=== PATIENT | female | born 1970 | race Caucasian/White ===

== ENCOUNTER 2019-10-31 14:26 | Outpatient (CLI) | payer MEDICAID, SELFPAY ==
--- NOTE | 2019-10-31 14:48 | XR_ITS ---
WS: [id number] XR chest 2V* [id number] REASON FOR EXAM: PLEURAL EFFUSION FINDINGS: The heart and mediastinal interfaces normal. The peripheral lungs do not show pleural effusion. The lung soto are well well aerated. There is no active infiltrates, no pulmonary edema. XR/XR chest 2V* [id number] IMPRESSION: Negative chest for active pathology.
== END 2019-10-31 14:27 | disposition home or self-care (01) ==
LOC: RADWPI 14:30
PROVIDERS: PCP Nurse Practitioner Family; Visit Provider Nurse Practitioner Family
DX: J98.8 Other specified respiratory disorders (principal); J90 Pleural effusion, not elsewhere classified
CPT/HCPCS: 71046

== ENCOUNTER 2020-02-01 08:34 | Outpatient (CLI) | payer MEDICAID, SELFPAY ==
--- NOTE | 2020-02-01 08:40 | US_ITS ---
WS: [id number] THYROID ULTRASOUND REASON FOR EXAM: ABNORMAL TSH/ENLARGED THYROID TECHNIQUE: Grayscale and Doppler ultrasound examination of the thyroid gland. FINDINGS: RIGHT: Right thyroid gland measures 5.6 cm x 2.3 cm x 2.1 cm. Right thyroid volume equals 14.0 ccm3. Scatter ed prominent cyst are seen throughout the lower one half of the right lobe of the thyroid. The gland is enlarged on the right. LEFT: Left thyroid gland measures 4.6 cm x 2.2 cm x 2.0 cm. Left thyroid volume equals 10.8 ccm3. The left lobe shows no numerous large cystic changes all appear to be benign cyst throughout the gland. Thyroid isthmus: 0.5 mm. US/US thyroid [id number] IMPRESSION: Enlarged right left lobes of the thyroid with numerous large cyst in both lobes .
== END 2020-02-01 08:35 | disposition home or self-care (01) ==
LOC: RAD 08:37
PROVIDERS: PCP Nurse Practitioner Family; Visit Provider Nurse Practitioner Family
DX: R79.89 Other specified abnormal findings of blood chemistry (principal); E04.9 Nontoxic goiter, unspecified
CPT/HCPCS: 76536

== ENCOUNTER 2020-04-05 12:39 | Day surgery (SDC) | payer MEDICAID, SELFPAY ==
[2020-04-05 12:50] VITALS: BP 126/81; PULSE 90; RESP 18; TEMP 36.9; O2SAT 97
--- NOTE | 2020-04-05 13:04 | ANES.PREANE2 ---
Pre-Anesthetic Assessment Pre-Anesthetic Assessment: Height/Weight: Height 1.65 m Weight 76.204 kg Temp Pulse Resp BP Pulse Ox 98.5 F 90 18 126/81 97 04/05/20 12:50 04/05/20 12:50 04/05/20 12:50 04/05/20 12:50 04/05/20 12:50 Preop Diagnosis: Right de Quervain's tenosynovitis Proposed Procedure: Operation Date: 04/05/20 14:05 Proposed Procedures p Dequervain Release [id number] M65.4(Right) - Aubrey Hardy MD Familial anesthetic complications: Previous nerve block or mariia block required supplemental local Was Beta Andreia taken within 24 hours: N/A Last intake: Intake Last Liquid Date 04/05/20 Last Liquid Time 08:30 Last Solid Date 04/04/20 Last Solid Time 22:00 Social: Social History: Tobacco and No alcohol Exam: Pre-Anes Outpt Exam: alert, oriented x 3, clear to auscultation bilaterally and regular rate & rhythm Airway: Cervical ROM: WNL MP: 3 Dentition: Partials Metabolic: Metabolic: DM and Hyperlipidemia Anesthetic Plan: ASA status: 1 Anesthesia: MAC and Regional (specify below) Other: mariia block Risk of > 500 ml blood loss (7ml/kg in children): No PFSH Anesthesia PFSH: Medical History DM II (diabetes mellitus, type II), controlled MRSA (methicillin resistant staph aureus) culture positive Palpitations Smoker Surgical History Hx of abdominal surgery Family History Father Diabetes Family history of premature coronary artery disease Mother Family history of premature coronary artery disease Denies family history of Anesthesia complication Bleeding disorder Social History Smoking and tobacco status: current some day smoker Alcohol intake: never Data Anesthesia Cardiac Studies: Holter Monitor 10/23/19
[2020-04-05 13:18] LABS: Glucose Point of Care 166 mg/dL (70-110)
[2020-04-05] MEDS: sodium chloride 0.9% 1,000 ML 30 ML IV (13:20)
--- NOTE | 2020-04-05 14:41 | W.PM.OPSUD ---
Surgery/Procedure H&P Update DATE OF PROCEDURE: April 05, 2020 DATE H&P PERFORMED: 03/22/20 PREOP DIAGNOSIS: Right de Quervain's tenosynovitis PLANNED PROCEDURE: Operation Date: 04/05/20 14:05 Proposed Procedures p Devorah Release [id number] M65.4(Right) - Aubrey Hardy MD
[2020-04-05 15:30] VITALS: BP 112/71; PULSE 77; RESP 18; TEMP 36.9
--- NOTE | 2020-04-05 15:38 | P.OP_ITS ---
Operative Report Date of procedure: April 05, 2020 Pre-op Diagnosis: Right de Quervain's tenosynovitis Post-op diagnosis: same Post-op Findings: Same Procedure Done: Right de Quervain's release Pathology: none sent Surgeon: Aubrey Hardy Anesthesia: Local (Jose Alfredo block) Estimated blood loss (mL): 2 Tourniquet time (min): 31 Findings: Patient had no masses or space-occupying lesions in the first extensor compartment of the wrist. Her tendons appeared healthy. Condition: stable Disposition: same day Procedure: The patient was taken to the operating room and a Jose Alfredo block was provided by anesthesia. She was prepped and draped in the usual fashion a timeout was performed. Her skin was tested to ensure adequacy of the block. A centimeter and half in the transverse incision was made radially over the tip of the ulnar styloid. Dissection was carried down bluntly through the deep tissues revealing the first extensor compartment of the wrist. The tensor pollicis brevis and abductor tendons were identified distally in this sheath divided. Dissection was then accomplished the central and the sheath proximally with sci ssors over a distance of approximately 8 mm. Large branches of the thumb abductor could be removed out of the wound revealing a much smaller thumb extensor tendon. No additional compartments were identified. Each tendon was released of constricting tendon sheath. No additional compartments were identified. The wound was irrigated with saline. The skin is well infiltrated with 1/2% Marcaine solution. A bulky compressive dressing was applied about the thumb using 4 x 4 fluffs, cast padding, and a 2 inch Gunnar wrap. The patient was taken to recovery room in stable condition. Tourniquet was deflated at 31- minute
[2020-04-05 15:51] VITALS: BP 132/79; PULSE 72; RESP 18; TEMP 36.9; O2SAT 97
--- NOTE | 2020-04-05 16:53 | ANE.PACU2 ---
Inpatient post-anesthesia follow up: Airway intact: Yes Vital signs: Temperature 98.5 F Pulse Rate 72 Respiratory Rate 18 Blood Pressure 132/79 Pulse Oximetry 97 Oxygen Delivery Me thod Room Air Oxygen Flow Rate Fraction of Inspir ed Oxygen Hydration adequate: Yes Nausea and vomiting: No Pain level: 1 Mental status: Baseline
== END 2020-04-05 16:26 | disposition home or self-care (01) ==
LOC: OR 16:36
PROVIDERS: PCP Nurse Practitioner Family; Visit Provider Orthopaedic Surgery
PROC: (CPT 25000; principal; 2020-04-05 14:05)
DX: M65.4 Radial styloid tenosynovitis [de Quervain] (principal); E11.9 Type 2 diabetes mellitus without complications; E78.5 Hyperlipidemia, unspecified; F17.210 Nicotine dependence, cigarettes, uncomplicated
CPT/HCPCS: 25000; 12345; 36416; 82962; 96360; 96361; J3490; J7030

== ENCOUNTER → 2020-05-02 15:40 | Outpatient (BNVA) | payer MEDICAID, SELFPAY | PROVIDERS: PCP Nurse Practitioner Family; Visit Provider Orthopaedic Surgery | DX: R00.2 Palpitations (principal); M25.531 Pain in right wrist | CPT/HCPCS: 73110 ==

== ENCOUNTER 2020-08-28 15:46 | Outpatient (CLI) | payer MEDICAID, SELFPAY ==
[2020-08-28 16:38] LABS: Basophils # 0.1 10^3/uL (0.0-0.1); Basophils % 0.6 %; Eosinophils # 0.1 10^3/uL (0.0-0.8); Eosinophils % 0.6 %; Hematocrit 43.9 % (37.0-47.0); Hemoglobin 14.6 g/dL (11.5-15.3); Lymphocytes # 3.5 10^3/uL (0.8-4.8); Lymphocytes % 35.2 %; Mean Corpuscular HGB Conc 33.3 g/dL (30.0-36.0); Mean Corpuscular Hemoglobin 31.3 pg (28.0-34.0); Mean Platelet Volume 9.3 fL (7.4-10.4); Monocytes # 0.3 10^3/uL (0.2-0.9); Monocytes % 2.8 %; Neutrophils # 6.03 10^3/uL (1.8-7.7); Neutrophils % 60.6 %; Nucleated Red Blood Cells % 0 %; Platelet Count 271 10^3/cmm (130-400); Red Blood Count 4.67 10^6/uL (4.1-5.3); Red Cell Distribution Width 11.7 % (12.1-15.1)
[2020-08-28 19:27] LABS: Alanine Aminotransferase 14 U/L (0-33); Alkaline Phosphatase 109 IU/L (35-105); Amylase 41 U/L (28-100); Anion Gap 15.3 (5-19); Aspartate Amino Transferase 14 U/L (0-32); Blood Urea Nitrogen 6 mg/dL (6-20); Calcium 9.4 mg/dL (8.5-10.5); Carbon Dioxide 25 mmol/L (22-29); Chloride 103 mmol/L (98-107); Globulin 2.2 g/dL (1.3-4.6); Glomerular Filtration Rate 106.7 mL/min (90-130); Glucose 212 mg/dL (65-115); Lipase 22 U/L (13-60); Osmolality Calculated 292 mOsm/kg (285-295); Potassium 4.3 mmol/L (3.5-5.1); Sodium 139 mmol/L (136-145); Total Bilirubin 0.2 mg/dL (0.15-1.2); Total Protein 6.2 g/dL (6.6-8.7)
== END 2020-08-28 15:47 | disposition home or self-care (01) ==
PROVIDERS: PCP Nurse Practitioner Family; Visit Provider Nurse Practitioner Family
DX: R10.10 Upper abdominal pain, unspecified (principal)
CPT/HCPCS: 80053; 82150; 83690; 84484; 85025

== ENCOUNTER 2020-09-04 06:48 | Outpatient (CLI) | payer MEDICAID, SELFPAY ==
--- NOTE | 2020-09-04 07:04 | US_ITS ---
WS: [id number] Complete ABDOMINAL ULTRASOUND HISTORY: ABD PAIN COMPARISON: 07/06/2019 gallbladder ultrasound Liver: 19.6 cm in length. Moderately enlarged liver with coarsened echotexture throughout the liver. Ill-defined hypoechoic area in the central RIGHT lobe the liver measures 1.8 x 2.0 x 1.6 cm. There ar e scattered areas of low attenuation from hepatic steatosis. No bile duct dilatation. Gallbladder: Mildly thickened gallbladder wall. More focal soft tissue thickening towards the fundus of the gallbladder measuring up to 1.2 cm. No stones or pericholecystic fluid. Gallbladder wall thickness: 0.4 cm. Pancreas: Normal size and echogenicity. CBD: 0.9 cm. Right kidney: 11.7 cm x 5.6 cm x 4.1 cm. No mass, cortical thickening or hydronephrosis. Left kidney: 12.6 cm x 6.5 cm x 4.8 cm. No mass, cortical thickening or hydronephrosis. Spleen: Normal size and echogenicity. Abdominal aorta and IVC are within normal limits. No ascites. US/US abdomen complete* [id number] IMPRESSION: 1. No evidence for cholelithiasis. 2. Mild gallbladder wall thickening. 3. Focal soft tissue thickening measuring 1.2 cm near the fundus of the gallbl adder. This may be a polyp or tumefactive sludge. Early neoplasm not excluded. 4. Enlarged liver with coarsened echotexture. Hypoechoic mass in the central l iver with a maximum diameter of 2.0 cm. This may be an early neoplasm or focal hepatic steatosis may appear similar. 5. Recommendation: Follow-up CT abdomen and pelvis with IV and oral contrast t o further evaluate the liver and the gallbladder.
== END 2020-09-04 06:49 | disposition home or self-care (01) ==
LOC: US 06:49
PROVIDERS: PCP Nurse Practitioner Family; Visit Provider Nurse Practitioner Family
DX: R10.11 Right upper quadrant pain (principal); R16.0 Hepatomegaly, not elsewhere classified
CPT/HCPCS: 76700

== ENCOUNTER 2020-09-21 12:34 | Outpatient (CLI) | payer MEDICAID, SELFPAY ==
--- NOTE | 2020-09-21 13:01 | CT_ITS ---
WS: [id number] CT ABDOMEN PELVIS TECHNIQUE: Contrast-enhanced CT of the abdomen and pelvis with coronal and sagittal reformatted image s. CLINICAL INFORMATION: LIVER MASS COMPARISON: CT and ultrasound July 05, 2021. CT DLP: 1095.[address] scans at [facility] use at least one of these dose optimization techniques: automat ed exposure control; mA and/or kV adjustment per patient size (includes targeted exams where dose is matched to clinical indication); or iterative reconstruction. FINDINGS: Diffuse fatty infiltration the liver. No hepatic lesions to correspond to the ultrasound findings. Ti ny hepatic cyst or cavernous hemangioma at the dome the liver measuring 3 mm. Normal portal vein and splenic vein. Tiny amount of soft tissue thickening in the gallbladder neck may represent a tiny poly p as seen on the recent ultrasound. No fluid in the gallbladder fossa. No intrahepatic biliary ductal dilatation. Slightly prominent common bile duct measuring 7 to 8 mm. Normal tapering at the pancreat ic head. Prior ventral hernia repair with ectatic ventral abdominal wall. Lung bases are well aerated. Calcifi ed granulomas right middle lobe and right lower lobe. Normal spleen. Stable left adrenal adenoma measuring 2.3 CM. Normal renal parenchymal enhancement. No hydronephrosis. Normal caliber abdominal aorta. Aortic calcification. Prior postoperative changes sigmoid anastomosis. No evidence of high-grade small or large bowel obstr uction. No free fluid in the abdomen or pelvis. No lymphadenopathy in the abdomen or pelvis. Normal lumbar spine. Mild disc bulging L4-L5 and L5-S1. CT/CT abdomen pelvis w con* [id number] IMPRESSION: 1. Diffuse fatty infiltration the liver. No hepatic lesions to correspond to t he ultrasound findings. 2. Tiny amount of soft tissue thickening at the gallbladder neck may represent the suspected polyp seen on the ultrasound. This is unchanged since CT 02/28. Gallbladder is otherwise normal. 3. Mild prominence of the common bile duct measuring 7-8 mm which tapers rocky lly at the pancreatic head. This is unchanged since 2019. 4. Stable left adrenal adenoma. 5. Prior ventral abdominal wall hernia repair with ectatic abdominal wall. 6. Prior postoperative changes sigmoid colon. 7. No free fluid in the abdomen or pelvis.
[2020-09-21] MEDS: iohexol 300 mg/mL 100 mL Btl IV (14:07)
[2020-09-21] MEDS: iohexol 300 mg/mL 50 mL Btl IV (14:08)
== END 2020-09-21 12:35 | disposition home or self-care (01) ==
LOC: RADWPI 12:34
PROVIDERS: PCP Nurse Practitioner Family; Visit Provider Nurse Practitioner Family
DX: R16.0 Hepatomegaly, not elsewhere classified (principal); K76.0 Fatty (change of) liver, not elsewhere classified; D35.02 Benign neoplasm of left adrenal gland
CPT/HCPCS: 74177; Q9967

== ENCOUNTER → 2021-05-14 15:06 | Outpatient (BNVA) | payer MEDICAID, SELFPAY | PROVIDERS: PCP Nurse Practitioner Family; Visit Provider Nurse Practitioner Family | DX: Z20.822 Contact with and (suspected) exposure to COVID-19 (principal); J06.9 Acute upper respiratory infection, unspecified | CPT/HCPCS: 87635 ==

== ENCOUNTER → 2021-09-11 14:12 | Outpatient (BNVA) | payer MEDICAID, SELFPAY | PROVIDERS: PCP Nurse Practitioner Family; Visit Provider Nurse Practitioner Family | DX: Z20.822 Contact with and (suspected) exposure to COVID-19 (principal) | CPT/HCPCS: 87635 ==

== ENCOUNTER 2021-10-28 22:16 | Emergency (ER) | payer MEDICAID, SELFPAY ==
[2021-10-28 22:44] VITALS: BP 140/75; PULSE 112; RESP 18; TEMP 37.1; O2SAT 97; BMI 28.3
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
[2021-10-29 00:42] VITALS: RESP 16
[2021-10-29] MEDS: orphenadrine 30 mg/mL Inj 2 mL 60 MG IVP (00:42)
[2021-10-29] MEDS: ondansetron 2 mg/ML SDV 2 mL 4 MG IVP (00:42)
[2021-10-29] MEDS: sodium chloride 0.9% 500 ML 999 ML IV (00:42)
[2021-10-29] MEDS: morphine 4 mg/mL SDV 1 mL IVP ×2 (00:42→02:25)
[2021-10-29] MEDS: iohexol 300 mg/mL 100 mL Btl IV (01:10)
[2021-10-29 02:25] VITALS: RESP 16
[2021-10-29] MEDS: ketorolac 30 mg/mL INJ IVP (03:04)
[2021-10-29 03:05] VITALS: BP 134/78; PULSE 78; RESP 16; O2SAT 98
== END 2021-10-29 03:07 | disposition home or self-care (01) ==
PROVIDERS: Emergency Provider Physician Assistant; PCP Nurse Practitioner Family
DX: M54.50 Low back pain, unspecified (principal); S13.4XXA Sprain of ligaments of cervical spine, initial encounter; V89.2XXA Person injured in unspecified motor-vehicle accident, traffic, initial encounter; Y92.410 Unspecified street and highway as the place of occurrence of the external cause; F17.200 Nicotine dependence, unspecified, uncomplicated
CPT/HCPCS: 70450; 71260; 72125; 72128; 72131; 74177; 96374; 96375; 96376; 99284; J1885; J2270; J2360; J2405; J7040; Q9967

== ENCOUNTER 2021-12-18 09:18 | Outpatient (CLI) | payer MEDICAID, SELFPAY ==
--- NOTE | 2021-12-18 09:28 | US_ITS ---
WS: [id number] THYROID ULTRASOUND HISTORY: ENLARGED THYROID GLAND COMPARISON: 02/01/2020 Right lobe: 2.9 cm x 2.7 cm x 5.1 cm (w x ap x l). Volume: 20.9 cm3. Thyroid gland is enlarged. There is a predominantly cystic mass with a few septations involving a lar ge portion of the thyroid. The largest probably cystic nodule measures 2.4 x 2.5 x 2.5 cm. No increas ed vascularity along the septations. No mural nodule is identified. Left lobe: 3.0 cm x 2.6 cm x 4.6 cm (w x ap x l). Volume: 18.5 cm3. Mildly enlarged gland. Predominantly cystic nodule involving a large portion of the gland. There is s olid component but predominantly cystic. This nodule measures 2.4 x 2.5 x 3.2 cm. The soft tissue com ponent within the periphery appears very similar to prior studies. Isthmus: 0.4 cm. US/US thyroid [id number] IMPRESSION: 1. Bilateral large predominantly cystic nodules within each gland. There are s olid components the findings are very similar to the prior study. Predominantly cystic nodules have a low suspicion for malignancy. 2. No adenopathy.
== END 2021-12-18 09:19 | disposition home or self-care (01) ==
LOC: RAD 09:20
PROVIDERS: PCP Nurse Practitioner Family; Visit Provider Nurse Practitioner Family
DX: E04.8 Other specified nontoxic goiter (principal)
CPT/HCPCS: 76536

== ENCOUNTER 2021-12-23 10:44 | Outpatient (CLI) | payer MEDICAID, SELFPAY ==
--- NOTE | 2021-12-23 11:05 | MR_ITS ---
WS: [id number] MRI HEAD WITH CONTRAST TECHNIQUE: Sagittal T1, T2 axial, T2 axial FLAIR, axial susceptibility weighted imaging, axial diffus ion weighted images, and coronal T2 images were obtained. Pre and post-T1 axial and post T1 coronal i mages. ADC and FSPGR images. CLINICAL INFORMATION: CEREBELLAR TONSILLER ECTOPIA COMPARISON: CT October 29, 2021 FINDINGS: No evidence of restricted diffusion to suggest acute ischemia. Ventricular system and basal cisterns are patent. Chiari I malformation with cerebellar tonsils approximately 15 mm below the foramen magnu m. Mild crowding of the foramen magnum. Mild mass effect on the brainstem. Normal brain stem signal. Normal 4th ventricle. No hydrocephalus. Mastoid air cells well aerated. Normal vascular flow voids at the skull base. Paranasal sinuses and m astoid air cells well aerated. No hemosiderin on susceptibly weighted images. Normal optic chiasm and pituitary infundibulum. Normal cavernous sinuses and Meckel's cave. No abnormal gadolinium enhanceme nt. Normal posterior nasopharynx. MR/MR head wo/w con [id number] IMPRESSION: 1. No evidence of restricted diffusion to suggest acute ischemia. 2. Chiari I malformation with cerebellar tonsils 15 mm below the foramen magnu m. Mild crowding at the foramen magnum with slight mass effect on the cervical medullary junction. No signal abnormality. 3. Normal 4th ventricle. No hydrocephalus. 4. No suspicious intracranial signal abnormalities. 5. No hemosiderin on susceptibly weighted images. 6. Cervical and thoracic spine MRI should be obtained to evaluate for cervical cord syrinx considering Chiari I malformation
[2021-12-23] MEDS: gadobenate dimeglumine 20 mL vial IV (12:39)
== END 2021-12-23 10:45 | disposition home or self-care (01) ==
LOC: RAD 10:45
PROVIDERS: PCP Nurse Practitioner Family; Visit Provider Nurse Practitioner Family
DX: Q04.8 Other specified congenital malformations of brain (principal); E04.8 Other specified nontoxic goiter
CPT/HCPCS: 70553

== ENCOUNTER → 2022-03-25 12:19 | Outpatient (BNVA) | payer MEDICAID, SELFPAY | PROVIDERS: Visit Provider Family Medicine | DX: G93.5 Compression of brain (principal); E11.9 Type 2 diabetes mellitus without complications; I10 Essential (primary) hypertension; Z76.89 Persons encountering health services in other specified circumstances | CPT/HCPCS: 80053; 80061; 83036; 84439; 84443; 85025 ==

== ENCOUNTER → 2023-03-23 14:22 | Outpatient (BNVA) | payer MEDICARE, MEDICAID, SELFPAY | PROVIDERS: PCP Family Medicine; Visit Provider Family Medicine | DX: I10 Essential (primary) hypertension (principal); E11.9 Type 2 diabetes mellitus without complications; F17.218 Nicotine dependence, cigarettes, with other nicotine-induced disorders; E78.5 Hyperlipidemia, unspecified; F41.9 Anxiety disorder, unspecified; F32.A Depression, unspecified; E83.52 Hypercalcemia | CPT/HCPCS: 80053; 80061; 82043; 82306; 83036; 84443; 85025 ==

== ENCOUNTER 2023-08-04 15:07 | Emergency (ER) | payer MEDICARE, MEDICAID, SELFPAY ==
--- NOTE | 2023-08-04 15:17 | ECG_ITS ---
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 Measurements Intervals [place] Rate: 97 P: 74 NM: 146 QRS: 73 QRSD: 102 T: 69 QT: 363 QTc: 461 Interpretive Statements SINUS RHYTHM MINIMAL ST DEPRESSION [0.025+ mV ST DEPRESSION] Compared to ECG 04/02/2019 18:27:18 ST (T wave) deviation now present Electronically Signed On 08-04-2023 22:23:21 BRUSH HOLDER INSPECTOR by Carla Atwood M.D. [id number]
[2023-08-04 15:19] VITALS: BMI 27.9
[2023-08-04 15:24] VITALS: BP 161/76; PULSE 108; RESP 20; TEMP 36.7; O2SAT 98
--- NOTE | 2023-08-04 15:25 | XRR_ITS ---
PROCEDURE INFORMATION: Exam: XR Chest Exam date and time: 08/04/2023 3:33 PM Age: 53 years old Clinical indication: Pain; Angina pectoris; Additional info: Cp TECHNIQUE: Imaging protocol: Radiologic exam of the chest. Views: 1 view. COMPARISON: CT chest andreal w/*[id number] 10/29/2021 1:02 AM FINDINGS: Lungs: Unremarkable. No consolidation. Pleural spaces: Unremarkable. No pleural effusion. No pneumothorax. Heart/Mediastinum: Unremarkable. No cardiomegaly. Bones/joints: Unremarkable. XR/XR chest 1V portable [id number] IMPRESSION: No acute findings.
--- NOTE | 2023-08-04 15:40 | W.ED.CHESTPA ---
HPI - Chest Pain General: Chief Complaint: Chest Pain Stated Complaint: heart beating funny Time Seen by Provider: 08/04/23 15:27 Source: patient Mode of arrival: ambulatory Limitations: no limitations History of Present Illness: 53-year-old female states that she has had a history of thyroid issues states that over the last 2 to 3 weeks she has been having palpitations feeling like her heart is racing and beating out of the place she had some shortness of breath chest pain with it. She is concerned she may be hyperthyroid. She states she had to grow since she is post to see ENT Dr. Menendez but has not yet. Denies any vomiting or diarrhea Associated symptoms: Reports dyspnea and palpitations; Deny abdominal pain, fever(s), nausea or vomiting Review of Systems Const: Denies: fever(s), chills, body aches or change in appetite ENMT: Denies: throat pain or dental pain Card: Reports: chest pain and palpitations Resp: Reports: dyspnea GI: Denies: abdominal pain, nausea, vomiting or diarrhea Musc: Denies: neck pain or back pain Skin/Breast: Denies: rash Neuro: Denies: headache(s) PFSH ED PFSH: Medical History (Updated 08/04/23 @ 19:41 by Kellee Goldstein MD) GERD (gastroesophageal reflux disease) Diverticulitis Hyperlipidemia Hypertension DM II (diabetes mellitus, type II), controlled Surgical History H/O esophagogastroduodenoscopy History of open sigmoidectomy History of History of hysterectomy 2004 Family History Father Diabetes Family history of premature coronary artery disease Mother Family history of premature coronary artery disease Denies family history of Anesthesia complication Bleeding disorder Social History Smoking and tobacco/nicotine status: never used tobacco/nicotine Alcohol intake: never Substance/Drug Use: never Female Reproductive History: Spontaneous abortions: No Physical Exam Const: COMMON NORMALS: no acute distress, patient oriented x3 and healthy appearing HENMT: COMMON NORMALS: normocephalic and atraumatic HEAD & SCALP: normocephalic and atraumatic Neck/C-Spine: COMMON NORMALS: full ROM and supple Chest: COMMONS NORMALS: normal inspection of the chest and normal palpation of entire chest wall Resp: COMMON NORMALS: normal respiratory effort, No retractions, No use of accessory muscles and clear to auscultation bilaterally AUSCULTATION: clear to auscultation bilaterally Cardio: COMMON NORMALS: regular rate, regular rhythm and No murmurs present (Cardio) RATE: regular rate RHYTHM: regular rhythm GI: COMMON NORMALS: Normal to inspection, nondistended, normoactive bowel sounds present, Soft to palpation, non-tender and no masses PALPATION: Yes Soft to palpation Extremity: COMMON NORMALS: normal to inspection and full ROM Neuro: COMMON NORMALS: patient oriented x3, moves all extremities and no focal motor deficits Psych: COMMON NORMALS: mental status grossly normal, Normal thought process present and cooperative THOUGHT PROCESS: Normal thought process present Skin: COMMON NORMALS: no rashes or lesions noted and no wounds GENERAL SKIN EXAM: no rashes or lesions noted Course Vital Signs: Vital signs: Vital Signs Temperature 98.1 F 08/04/23 15:24 Pulse Rate 87 08/04/23 17:34 Respiratory Rate 20 H 08/04/23 17:34 Blood Pressure 127/73 08/04/23 16:52 Pulse Oximetry 98 08/04/23 17:34 Oxygen Delivery Me thod Room Air 08/04/23 17:34 MDM - Chest Pain Medical Decision Making Patient presents here with chest pain and palpitations atypical in nature D-dimer troponins here are all negative she is stable for discharge she is to follow-up with PCP and return if worsening. Medical Records I reviewed the patient's medical records. Lab Data I reviewed the patient's lab results. 08/04/23 16:02 08/04/23 17:00 Laboratory Results WBC 12.11 10^3/uL (3.29-11.43) H 08/04/23 16:02 RBC 5.11 10^6/uL (3.85-5.65) 08/04/23 16:02 Hgb 16.80 g/dL (11.27-16.99) 08/04/23 16:02 Hct 48.6 % (36-47) H 08/04/23 16:02 MCV 95.1 fl (85-98) 08/04/23 16:02 MCH 32.9 pg (27-33) 08/04/23 16:02 MCHC 34.6 g/dL (30-55) 08/04/23 16:02 RDW 12.1 % (12.1-15.1) 08/04/23 16:02 Plt Count 230 10^3/cmm (157-399) 08/04/23 16:02 MPV 9.6 fL (7.4-10.4) 08/04/23 16:02 Neut % (Auto) 71.0 % 08/04/23 16:02 Lymph % (Auto) 24.2 % 08/04/23 16:02 [place] % (Auto) 3.7 % 08/04/23 16:02 Eos % (Auto) 0.3 % 08/04/23 16:02 Baso % (Auto) 0.4 % 08/04/23 16:02 Neut # (Auto) 8.59 10^3/uL (1.8-7.7) H 08/04/23 16:02 Lymph # (Auto) 2.9 10^3/uL (0.8-4.8) 08/04/23 16:02 [place] # (Auto) 0.5 10^3/uL (0.2-0.9) 08/04/23 16:02 Eos # (Auto) 0.0 10^3/uL (0.0-0.8) 08/04/23 16:02 Baso # (Auto) 0.1 10^3/uL (0.0-0.1) 08/04/23 16:02 Nucleated RBC % (auto) 0 % 08/04/23 16:02 Nucleated RBCs # 0.0 /100WBC 08/04/23 16:02 D-Dimer 0.28 ug/mLFEU (0-0.59) 08/04/23 17:00 Sodium 138 mmol/L (136-145) 08/04/23 17:00 Potassium 3.6 mmol/L (3.5-5.1) 08/04/23 17:00 Chloride 100 mmol/L (98-107) 08/04/23 17:00 Carbon Dioxide 25 mmol/L (22-29) 08/04/23 17:00 Anion Gap 16.6 (5-19) 08/04/23 17:00 BUN 8 mg/dL (6-20) 08/04/23 17:00 Creatinine 0.5 mg/dL (0.5-0.9) 08/04/23 17:00 GFR Calculation 130.1 mL/min (90-130) H 08/04/23 17:00 Glucose 261 mg/dL (65-115) H 08/04/23 17:00 Calculated Osmolality 293 mOsm/kg (285-295) 08/04/23 17:00 Calcium 9.9 mg/dL (8.5-10.5) 08/04/23 17:00 Total Bilirubin 0.4 mg/dL (0.15-1.2) 08/04/23 17:00 AST 17 U/L (0-32) 08/04/23 17:00 ALT 17 U/L (0-33) 08/04/23 17:00 Alkaline Phosphatase 130 U/L (35-105) H 08/04/23 17:00 Troponin T Baseline < 6 ng/L (0-10) 08/04/23 17:00 Troponin T 120 Minute 6.00 ng/L (0-10) 08/04/23 19:08 Delta Troponin T [id number] ABS# (0-10) 08/04/23 19:08 Total Protein 7.2 g/dL (6.6-8.7) 08/04/23 17:00 Albumin 4.7 g/dL (3.5-5.2) 08/04/23 17:00 Globulin 2.5 g/dL (1.3-4.6) 08/04/23 17:00 TSH 0.76 uIU/mL (0.27-4.20) 08/04/23 17:00 Free T4 Cancelled 08/04/23 16:02 All radiology interpretation(s) finalized by discharge EKG Data EKG 1: I personally reviewed and interpreted this EKG as follows: EKG interpretation date: 08/04/23 EKG interpretation time: 15:17 Interpretation: nsr hr [address] or t wave abnormalities qrs 102 qtc 417 Discharge Plan Discharge Patient Disposition: Home Clinical Impression: Chest pain, Palpitations Condition: Stable Prescriptions: No Action oxycodone [OxyContin] 30 mg tablet,oral only,ext.rel.12 hr 30 mg PO BEDTIME atorvastatin 40 mg tablet 40 mg PO DAILY Qty: 90 3RF sertraline [Zoloft] 100 mg tablet 100 mg PO BID Qty: 180 3RF (DME) OneTouch Ultra Test Strip See Rx Instructions .ROUTE .COMPLEX Qty: 100 3RF Dose Instruction: test ONCE a DAY Rx Instructions: test ONCE a DAY ibuprofen 400 mg Tablet 400 mg PO DAILY PRN (Reason: Pain) gabapentin 400 mg capsule 400 mg PO Q6H oxycodone 10 mg tablet 5 - 10 mg PO Q46H Rx Instructions: take 1/2 to 1 tablet BY MOUTH EVERY 4 TO 6 HOURS NEEDED buspirone 5 mg tablet 5 mg PO TID PRN (Reason: Anxiety) glipizide 10 mg tablet 10 mg PO DAILY lisinopril 5 mg tablet 5 mg PO BID Discharge Orders: Discharge ED (Routine); Ordered 08/04/23 Ordered By: Kellee Goldstein Referrals: Alo Solis DO [Primary Care Provider] - 1-3 days Discharge Diet: Advance as tolerated Discharge Activity: Resume usual activity Patient Instructions: Chest Pain (ED), Heart Palpitations (ED) Coding Level of Care Code ED Manager Communication for Edwar Garcia
[2023-08-04 15:53] VITALS: BP 151/89; PULSE 96; RESP 17; O2SAT 98
[2023-08-04 16:12] LABS: Basophils # 0.1 10^3/uL (0.0-0.1); Basophils % 0.4 %; Eosinophils % 0.3 %; Hematocrit 48.6 % (36-47); Lymphocytes # 2.9 10^3/uL (0.8-4.8); Lymphocytes % 24.2 %; Mean Corpuscular HGB Conc 34.6 g/dL (30-55); Mean Corpuscular Hemoglobin 32.9 pg (27-33); Mean Corpuscular Volume 95.1 fl (85-98); Mean Platelet Volume 9.6 fL (7.4-10.4); Monocytes # 0.5 10^3/uL (0.2-0.9); Monocytes % 3.7 %; Neutrophils # 8.59 10^3/uL (1.8-7.7); Nucleated Red Blood Cells % 0 %; Platelet Count 230 10^3/cmm (157-399); Red Blood Count 5.11 10^6/uL (3.85-5.65); Red Cell Distribution Width 12.1 % (12.1-15.1); White Blood Count 12.11 10^3/uL (3.29-11.43)
[2023-08-04] MEDS: labetalol 5 mg/mL SDV 20mL 10 MG IVP (16:12)
[2023-08-04 16:52] VITALS: BP 127/73
--- NOTE | 2023-08-04 17:25 | ECG_ITS ---
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 Measurements Intervals [place] Rate: 80 P: 60 FL: 151 QRS: 48 QRSD: 100 T: 52 QT: 386 QTc: 448 Interpretive Statements SINUS RHYTHM POSSIBLE LEFT ATRIAL ENLARGEMENT [-0.1mV P-WAVE IN V1/V2] Compared to ECG 08/04/2023 15:17:25 ST (T wave) deviation no longer present Electronically Signed On 08-04-2023 22:24:50 PHARMACISTS by Carla Atwood M.D. [id number]
[2023-08-04 17:34] VITALS: PULSE 87; RESP 20; O2SAT 98
[2023-08-04 17:50] LABS: D Dimer 0.28 ug/mLFEU (0-0.59)
[2023-08-04 17:57] LABS: Troponin(5th) Baseline < 6 ng/L (0-10)
[2023-08-04 18:08] LABS: Alanine Aminotransferase 17 U/L (0-33); Albumin Level 4.7 g/dL (3.5-5.2); Alkaline Phosphatase 130 U/L (35-105); Aspartate Amino Transferase 17 U/L (0-32); Blood Urea Nitrogen 8 mg/dL (6-20); Calcium 9.9 mg/dL (8.5-10.5); Carbon Dioxide 25 mmol/L (22-29); Chloride 100 mmol/L (98-107); Globulin 2.5 g/dL (1.3-4.6); Glomerular Filtration Rate 130.1 mL/min (90-130); Glucose 261 mg/dL (65-115); Osmolality Calculated 293 mOsm/kg (285-295); Sodium 138 mmol/L (136-145); Thyroid Stimulating Hormone 0.76 uIU/mL (0.27-4.20); Total Bilirubin 0.4 mg/dL (0.15-1.2); Total Protein 7.2 g/dL (6.6-8.7)
[2023-08-04 18:13] LABS: Anion Gap 16.6 (5-19); Potassium 3.6 mmol/L (3.5-5.1)
[2023-08-04 19:34] LABS: Troponin 5 2HR Delta 0.00001 ABS# (0-10)
[2023-08-04 20:16] VITALS: PULSE 87; RESP 20; O2SAT 98
[2023-08-04 20:21] LABS: Free T4 Free Thyroxine 1.15 ng/dL (0.82-1.77)
== END 2023-08-04 20:17 | disposition home or self-care (01) ==
PROVIDERS: Emergency Provider Emergency Medicine; PCP Family Medicine
DX: R07.9 Chest pain, unspecified (principal); R00.2 Palpitations; Z79.84 Long term (current) use of oral hypoglycemic drugs; E78.5 Hyperlipidemia, unspecified; I10 Essential (primary) hypertension; E11.9 Type 2 diabetes mellitus without complications
CPT/HCPCS: 36415; 71045; 80053; 84439; 84443; 84484; 85025; 85378; 93005; 96374; 99285; J3490

== ENCOUNTER → 2023-08-18 15:07 | Outpatient (BNVA) | payer MEDICARE, MEDICAID, SELFPAY | PROVIDERS: PCP Family Medicine; Visit Provider Family Medicine | DX: R79.89 Other specified abnormal findings of blood chemistry (principal); I10 Essential (primary) hypertension; R00.2 Palpitations; E83.42 Hypomagnesemia | CPT/HCPCS: 80053; 82306; 82310; 82607; 83036; 83735; 83970; 84100 ==

== ENCOUNTER 2023-09-10 10:49 | Outpatient (CLI) | payer MEDICARE, MEDICAID, SELFPAY ==
--- NOTE | 2023-09-10 10:59 | MR_ITS ---
WS: [id number] MRI BRAIN WITH AND WITHOUT CONTRAST HISTORY: Chiari MALFORMATION TYPE I COMPARISON: 12/23/2021 TECHNIQUE: Multiplanar imaging performed through the brain with MultiHance 13 ml's IV. No acute infarcts are seen. Black-white matter differentiation is well preserved. No susceptibility artifacts or prior lacunar infarcts. Ventricles and extra-axial spaces are normal. Clivus and pituitary gland are normal. Reidentified is inferior displacement of the cerebellar tonsils below the foramen magnum by 15 mm. Th ere has been interval resection of the posterior occiput at the level of the foramen magnum. There is a small caliber posterior fossa. No progression of the Chiari malformation. There is no hydrocephalu s. Postcontrast images are negative for masses or vascular malformations. Dural venous sinuses are normal. Paranasal sinuses: Well aerated with no significant disease. Mastoid air cells: Normal. Calvarium and scalp: Resection of the posterior occiput at the level just above the foramen magnum. IMPRESSION: 1. Interval resection of the posterior occiput just above the foramen magnum. 2. Continued Chiari I malformation. Cerebellar tonsils are peglike extending 15 mm below the foramen magnum location. 3. No hydrocephalus. No infarct. No hemorrhage.
== END 2023-09-10 10:50 | disposition home or self-care (01) ==
LOC: RAD 10:50
PROVIDERS: PCP Family Medicine; Visit Provider Nurse Practitioner Family
DX: G93.5 Compression of brain (principal)
CPT/HCPCS: 70553; A9577

== ENCOUNTER → 2023-10-01 13:36 | Outpatient (BNVA) | payer MEDICARE, MEDICAID, SELFPAY | PROVIDERS: PCP Family Medicine; Referring Provider Family Medicine; Visit Provider Internal Medicine | DX: R07.9 Chest pain, unspecified (principal); R00.2 Palpitations; I10 Essential (primary) hypertension; F17.218 Nicotine dependence, cigarettes, with other nicotine-induced disorders; E11.42 Type 2 diabetes mellitus with diabetic polyneuropathy; R94.31 Abnormal electrocardiogram [ECG] [EKG] | CPT/HCPCS: 93005; 99204 ==

== ENCOUNTER 2023-10-08 12:50 | Outpatient (CLI) | payer MEDICARE, MEDICAID, SELFPAY ==
--- NOTE | 2023-10-08 15:00 | USCV_ITS ---
Karen Joe Age: 53 Gender: F : 1970 Exam Date: 10/08/2023 13:00 Ordering Phys: Oswaldo Quiñones M.D ([email or web address]) Technologist: AARTI [place] [facility] [place]ication: CHEST PRESSURE SOB BP: 140 / 80 HR: 0 Rhythm: Sinus Technical Quality: Adequate MEASUREMENTS (Male / Female) Normal Values 2D ECHO LV Diastolic Diameter PLAX 4.4 cm 4.2 - 5.9 / 3.9 - 5.3 cm IVS Diastolic Thickness 1.4 cm 0.6 - 1.0 / 0.6 - 0.9 cm IVS Systolic Thickness 1.6 cm LVPW Diastolic Thickness 1.5 cm 0.6 - 1.0 / 0.6 - 0.9 cm LVPW Systolic Thickness 1.7 cm LVOT Diameter 1.7 cm LV Ejection Fraction 2D Teich 51.2 % LV Ejection Fraction MOD 2C 67.5 % LV Ejection Fraction 2C AL 0.0 % LA Diameter 2.7 cm Aorta at Sinotubular Diameter 2.9 cm M-MODE LA Ao Ratio MM 1.5 AV Cusp Separation MM 2.0 cm DOPPLER AV Peak Velocity 138.0 cm/s LVOT Peak Velocity 98.0 cm/s AV Area Cont Eq vti 1.8 cm squared AV Area Cont Eq pk 1.7 cm squared MV Peak Velocity 93.0 cm/s MV Area PHT 6.5 cm squared Mitral E to A Ratio 1.1 TR Peak Velocity 130.0 cm/s TR Peak Gradient 6.8 mmHg TV Peak E Velocity 61.0 cm/s Right Atrial Pressure 3.0 mmHg Pulmonary Artery Systolic Pressu 9.8 mmHg RV Ejection Time 0.3 s FINDINGS Left Ventricle Left ventricle is normal in size. LV systolic function is normal with EF of 55 to 60%. No regional wall motion abnormalities are seen. Right Ventricle Normal in size and function Right Atrium Normal in size Left Atrium Normal in size Mitral Valve Structurally normal mitral valve. Mild mitral regurgitation Aortic Valve Structurally normal aortic valve. No significant stenosis or regurgitation. Tricuspid Valve Mild tricuspid regurgitation. Insufficient TR jet to calculate RVSP. Pulmonic Valve Not well visualized Pericardium Normal Aorta Normal in size IVC Appears to be normal CONCLUSIONS LV systolic function is normal with EF of 55 to 60%. Mild mitral regurgitation Mild tricuspid regurgitation No comparison studies are available. Oswaldo Quiñones MD (Electronically Signed) Final Date: 10 October 2023 14:05 S
== END 2023-10-08 12:51 | disposition home or self-care (01) ==
LOC: RAD 12:50
PROVIDERS: PCP Family Medicine; Visit Provider Internal Medicine
DX: R07.9 Chest pain, unspecified (principal); R06.02 Shortness of breath
CPT/HCPCS: 93306

== ENCOUNTER → 2024-01-19 11:06 | Outpatient (BNVA) | payer MEDICARE, MEDICAID, SELFPAY | PROVIDERS: PCP Family Medicine; Visit Provider Nurse Practitioner Family | DX: I10 Essential (primary) hypertension (principal); F17.200 Nicotine dependence, unspecified, uncomplicated | CPT/HCPCS: 99213 ==

== ENCOUNTER → 2024-02-08 13:55 | Outpatient (BNVA) | payer MEDICARE, MEDICAID, SELFPAY | PROVIDERS: PCP Family Medicine; Visit Provider Internal Medicine Cardiovascular Disease | DX: I49.8 Other specified cardiac arrhythmias (principal); I10 Essential (primary) hypertension; E78.2 Mixed hyperlipidemia; E11.42 Type 2 diabetes mellitus with diabetic polyneuropathy; F41.9 Anxiety disorder, unspecified; F32.A Depression, unspecified; F17.218 Nicotine dependence, cigarettes, with other nicotine-induced disorders | CPT/HCPCS: 99215 ==

== ENCOUNTER 2025-04-13 14:22 | Emergency (ER) | payer MEDICARE, MEDICAID, SELFPAY ==
--- OUTSIDE RECORDS SUMMARY | 2025-04-13 14:27 | XMS_ITS | Encounter Summary ---
Author Organization [facility] Address [address] [place] [address] Care Team Providers Care Beater Head Name Role Phone Unavailable Primary Care Provider Unavailabl e Encounter Details Date Type Department Care Team (Latest Contact Info) Description 11/18/1999 Outpatient Historical [facility] Medicine [address] [phone] Christiano Tomlinson MD [address] [place] [phone] Supervision of other normal (Primary Dx); Abnormal maternal glucose tolerance, complicating , childbirth, or the puerperium, unspecified as to episode of care; Unspecified asthma(493.90) Social History Tobacco Use Types Packs/Day Years Used Date Smoking Tobacco: Never Assessed Comments Unknown Sex and Gender Information Value Date Recorded Sex Assigned at Not on file 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
--- OUTSIDE RECORDS SUMMARY | 2025-04-13 14:27 | XMS_ITS | Encounter Summary ---
Author Organization [facility] Address [address] [place] [address] Care Team Providers Care Sider Name Role Phone Unavailable Primary Care Provider Unavailabl e Encounter Details Date Type Department Care Team (Latest Contact Info) Description 10/22/2001 Outpatient Historical [facility] Medicine [address] [phone] Marlene Capellan MD [address] [place] [phone] SPON ABORT UNCOMPL-INC (Primary Dx); Acute posthemorrhag anemia Social History Tobacco Use Types Packs/Day Years Used Date Smoking Tobacco: Never Assessed Comments Unknown Sex and Gender Information Value Date Recorded Sex Assigned at Not on file 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
--- OUTSIDE RECORDS SUMMARY | 2025-04-13 14:27 | XMS_ITS | Encounter Summary ---
Author Organization [facility] Address [address] [place] [address] Care Team Providers Care Waste Duster Name Role Phone Unavailable Primary Care Provider Unavailabl e Encounter Details Date Type Department Care Team (Latest Contact Info) Description 01/23/2003 Outpatient Historical [facility] Imaging Services-Luciano Jonas [place] [address] [place] [address] Julian Toussaint MD [address] [address] ENDOMETRIOSIS NOS (Primary Dx) Social History Tobacco Use Types Packs/Day Years Used Date Smoking Tobacco: Never Assessed Comments Unknown Sex and Gender Information Value Date Recorded Sex Assigned at Not on file 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
--- OUTSIDE RECORDS SUMMARY | 2025-04-13 14:27 | XMS_ITS | Encounter Summary ---
Author Organization [facility] Address [address] [place] [address] Care Team Providers Care Correctional Casework Specialist Name Role Phone Unavailable Primary Care Provider Unavailabl e Encounter Details Date Type Department Care Team (Latest Contact Info) Description 01/01/2000 Outpatient Historical [facility] Medicine [address] [phone] Christiano Tomlinson MD [address] [place] [phone] care and examination immediately after delivery (Primary Dx); Tension headache Social History Tobacco Use Types Packs/Day Years Used Date Smoking Tobacco: Never Assessed Comments Unknown Sex and Gender Information Value Date Recorded Sex Assigned at Not on file 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
--- OUTSIDE RECORDS SUMMARY | 2025-04-13 14:27 | XMS_ITS | Encounter Summary ---
Author Organization [facility] Address [address] [place] [address] Care Team Providers Care Mounter Name Role Phone Unavailable Primary Care Provider Unavailabl e Encounter Details Date Type Department Care Team (Latest Contact Info) Description 02/07/2000 [facility]patient [facility] [address] [phone] Christiano Tomlinson MD [address] [place] [phone] Routine follow-up (Primary Dx) Social History Tobacco Use Types Packs/Day Years Used Date Smoking Tobacco: Never Assessed Comments Unknown Sex and Gender Information Value Date Recorded Sex Assigned at Not on file 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
--- OUTSIDE RECORDS SUMMARY | 2025-04-13 14:27 | XMS_ITS | Encounter Summary ---
Author Organization [facility] Address [address] [place] [address] Care Team Providers Care Gravel Weigher Name Role Phone Unavailable Primary Care Provider Unavailabl e Encounter Details Date Type Department Care Team (Latest Contact Info) Description 12/03/1999 Outpatient Historical [facility] Medicine [address] [phone] Marlene Capellan MD [address] [place] [phone] care and examination immediately after delivery (Primary Dx); Other postprocedural status(V45.89) Social History Tobacco Use Types Packs/Day Years Used Date Smoking Tobacco: Never Assessed Comments Unknown Sex and Gender Information Value Date Recorded Sex Assigned at Not on file 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
--- OUTSIDE RECORDS SUMMARY | 2025-04-13 14:27 | XMS_ITS | Encounter Summary ---
Author Organization [facility] Address [address] [place] [address] Care Team Providers Care Medication Specialist Name Role Phone Unavailable Primary Care Provider Unavailabl e Encounter Details Date Type Department Care Team (Latest Contact Info) Description 06/17/2002 Outpatient Historical [facility] Oral and Maxillo Surgery- [address] [place] [phone] Uche Rose, PhD NO ADDRESS ON FILE UNSPEC DENTAL CARIES (Primary Dx) Social History Tobacco Use Types Packs/Day Years Used Date Smoking Tobacco: Never Assessed Comments Unknown Sex and Gender Information Value Date Recorded Sex Assigned at Not on file 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
--- OUTSIDE RECORDS SUMMARY | 2025-04-13 14:27 | XMS_ITS | Encounter Summary ---
Author Organization [facility] Address [address] [place] [address] Care Team Providers Care Gas Regulator Repairer Helper Name Role Phone Unavailable Primary Care Provider Unavailabl e Encounter Details Date Type Department Care Team (Latest Contact Info) Description 01/02/2003 Outpatient Historical [facility] Medicine [address] [phone] Marlene Capellan MD [address] [place] [phone] UTERINE INFLAM DIS NOS (Primary Dx) Social History Tobacco Use Types Packs/Day Years Used Date Smoking Tobacco: Never Assessed Comments Unknown Sex and Gender Information Value Date Recorded Sex Assigned at Not on file 

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
--- OUTSIDE RECORDS SUMMARY | 2025-04-13 14:27 | XMS_ITS | Encounter Summary ---
Author Organization [facility] Address [address] [place] [address] Care Team Providers Care Mica Parts Sprayer Name Role Phone Unavailable Primary Care Provider Unavailabl e Encounter Details Date Type Department Care Team (Latest Contact Info) Description 01/05/2003 Outpatient Historical [facility] Shannan Pritesh Elliott [address] [place] [address] Julian Toussaint MD [address] [address] SCREENING MAL NEOP-CERVIX (Primary Dx) Social History Tobacco Use Types Packs/Day Years Used Date Smoking Tobacco: Never Assessed Comments Unknown Sex and Gender Information Value Date Recorded Sex Assigned at Not on file Legal Sex Female 4:53 AM LATHE SPOTTER Gender Identity Not on file Sexual Orientation Not on file documented as of this encounter Plan of Treatment Not on file documented as of this encounter Visit Diagnoses Diagnosis Screening for malignant neoplasm of the cervix- Primary documented in this encounter
--- OUTSIDE RECORDS SUMMARY | 2025-04-13 14:27 | XMS_ITS | Encounter Summary ---
Author Organization [facility] Address [address] [place] [address] Care Team Providers Care Mandarin Teacher Name Role Phone Unavailable Primary Care Provider Unavailabl e Encounter Details Date Type Department Care Team (Latest Contact Info) Description 01/05/2003 Outpatient Historical [facility] Shannan Pritesh [place] [address] [place] [address] Julian Toussaint MD [address] [id number] Gynecologic examination (Primary Dx); Irregular menstruation; UTERINE LEIOMYOMA NOS; FEMALE GENITAL SYMPTOMS NOS Social History Tobacco Use Types Packs/Day Years Used Date Smoking Tobacco: Never Assessed Comments Unknown Sex and Gender Information Value Date Recorded Sex Assigned at Not on file Legal Sex Female 4:53 AM PRODUCTION 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
--- OUTSIDE RECORDS SUMMARY | 2025-04-13 14:27 | XMS_ITS | Encounter Summary ---
Author Organization [facility] Address [address] [place] [address] Care Team Providers Care An/Ssn 2 4 Operator Name Role Phone Unavailable Primary Care Provider Unavailabl e Encounter Details Date Type Department Care Team (Latest Contact Info) Description 01/02/2003 Outpatient Historical [facility] Medicine [address] [phone] Marlene Capellan MD [address] [place] [id number] BACKACHE NOS (Primary Dx); ENDOMETRIOSIS NOS Social History Tobacco Use Types Packs/Day Years Used Date Smoking Tobacco: Never Assessed Comments Unknown Sex and Gender Information Value Date Recorded Sex Assigned at Not on file Legal Sex Female 4:53 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
--- OUTSIDE RECORDS SUMMARY | 2025-04-13 14:27 | XMS_ITS | Encounter Summary ---
Author Organization [facility] Address [address] [place] [address] Care Team Providers Care Jammer Hooker Name Role Phone Unavailable Primary Care Provider Unavailabl e Encounter Details Date Type Department Care Team (Latest Contact Info) Description 01/23/2003 Outpatient Historical [facility] [place] [place] [address] [place] [address] Julian Toussaint MD [address] [phone] DISORDER OF UTERUS NOS (Primary Dx) Social History Tobacco Use Types Packs/Day Years Used Date Smoking Tobacco: Never Assessed Comments Unknown Sex and Gender Information Value Date Recorded Sex Assigned at Not on file Legal Sex Female 4:53 AM SECURITY TESTER Gender Identity Not on file Sexual Orientation Not on file documented as of this encounter Plan of Treatment Not on file documented as of this encounter Visit Diagnoses Diagnosis Unspecified disorder of uterus- Primary documented in this encounter
--- OUTSIDE RECORDS SUMMARY | 2025-04-13 14:28 | XMS_ITS | Encounter Summary ---
Author Organization [facility] Address [address] [place] [address] Care Team Providers Care Saw Handle Assembler Name Role Phone Unavailable Primary Care Provider Unavailabl e Encounter Details Date Type Department Care Team (Latest Contact Info) Description 05/17/1998 Outpatient Historical [facility] Medicine [address] [address] Marlene Capellan MD [address] [place] [phone] Irregular menstruation (Primary Dx); Dysmenorrhea Social History Tobacco Use Types Packs/Day Years Used Date Smoking Tobacco: Never Assessed Comments Unknown Sex and Gender Information Value Date Recorded Sex Assigned at Not on file Legal Sex Female 4:53 AM TIRE WRAPPER Gender Identity Not on file Sexual Orientation Not on file documented as of this encounter Plan of Treatment Not on file documented as of this encounter Visit Diagnoses Diagnosis Irregular menstruation- Primary Irregular menstrual cycle Dysmenorrhea documented in this encounter
--- OUTSIDE RECORDS SUMMARY | 2025-04-13 14:28 | XMS_ITS | Encounter Summary ---
Author Organization [facility] Address [address] [place] [address] Care Team Providers Care Physician Scientist Name Role Phone Unavailable Primary Care Provider Unavailabl e Encounter Details Date Type Department Care Team (Late st Contact Info) Description 06/04/1998 Outpatient Historical [facility] Shannan Canadian Genie [address] [place] [address] Luis Gorman MD [address] [facility] [address] [place] [address] Metrorrhagia (Primary Dx); Unspecified symptom associated with female genital organs Social History Tobacco Use Types Packs/Day Years Used Date Smoking Tobacco: Never Assessed Comments Unknown Sex and Gender Information Value Date Recorded Sex Assigned at Not on file Legal 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
--- OUTSIDE RECORDS SUMMARY | 2025-04-13 14:28 | XMS_ITS | Encounter Summary ---
Author Organization [facility] Address [address] [place] [address] Care Team Providers Care Home Aide Name Role Phone Unavailable Primary Care Provider Unavailabl e Encounter Details Date Type Department Care Team (Latest Contact Info) Description 11/01/1999 Outpatient Historical [facility] Medicine [address] [phone] Marlene Capellan MD [address] [place] [phone] Supervision of other normal (Primary Dx); Antepartum diabetes mellitus Social History Tobacco Use Types Packs/Day Years Used Date Smoking Tobacco: Never Assessed Comments Unknown Sex and Gender Information Value Date Recorded Sex Assigned at Not on file 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
--- OUTSIDE RECORDS SUMMARY | 2025-04-13 14:28 | XMS_ITS | Encounter Summary ---
Author Organization [facility] Address [address] [place] [address] Care Team Providers Care Nurse Extern Name Role Phone Unavailable Primary Care Provider Unavailabl e Encounter Details Date Type Department Care Team (Latest Contact Info) Description 06/28/1998 Outpatient Historical [facility] Medicine [address] [address] Marlene Capellan MD [address] [place] [phone] Lumbago (Primary Dx); Excessive menstruation Social History Tobacco Use Types Packs/Day Years Used Date Smoking Tobacco: Never Assessed Comments Unknown Sex and Gender Information Value Date Recorded Sex Assigned at Not on file 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
--- OUTSIDE RECORDS SUMMARY | 2025-04-13 14:28 | XMS_ITS | Encounter Summary ---
Author Organization [facility] Address [address] [place] [address] Care Team Providers Care Director Transition Name Role Phone Unavailable Primary Care Provider Unavailabl e Encounter Details Date Type Department Care Team (Latest Contact Info) Description 09/23/1999 Outpatient Historical [facility] Medicine [address] [address] Marlene Capellan MD [address] [place] [phone] Supervision of other normal (Primary Dx) Social History Tobacco Use Types Packs/Day Years Used Date Smoking Tobacco: Never Assessed Comments Unknown Sex and Gender Information Value Date Recorded Sex Assigned at Not on file 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
--- OUTSIDE RECORDS SUMMARY | 2025-04-13 14:28 | XMS_ITS | Encounter Summary ---
Author Organization [facility] Address [address] [facility] [address] [address] Attn: [place] [address] Care Team Providers Care Ticket Chopper Assembler Name Role Phone Unavailable Primary Care Provider Unavailabl e Encounter Details Date Type Department Care Team (Late st Contact Info) Description 09/20/1999 Outpatient Historical Sylvie Ash MD [address] [place] [address] Social History Tobacco Use Types Packs/Day Years Used Date Smoking Tobacco: Never Assessed Comments Unknown Sex and Gender Information Value Date Recorded Sex Assigned at Not on file 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
--- OUTSIDE RECORDS SUMMARY | 2025-04-13 14:28 | XMS_ITS | Encounter Summary ---
Author Organization [facility] Address [address] [place] [address] Care Team Providers Care Ultrasound Tech Name Role Phone Unavailable Primary Care Provider Unavailabl e Encounter Details Date Type Department Care Team (Latest Contact Info) Description 10/04/1999 Outpatient Historical [facility] Medicine [address] [phone] Marlene Capellan MD [address] [place] [phone] Supervision of other normal (Primary Dx); Pain in joint, pelvic region and thigh Social History Tobacco Use Types Packs/Day Years Used Date Smoking Tobacco: Never Assessed Comments Unknown Sex and Gender Information Value Date Recorded Sex Assigned at Not on file Legal 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
--- OUTSIDE RECORDS SUMMARY | 2025-04-13 14:28 | XMS_ITS | Encounter Summary ---
Author Organization [facility] Address [address] [place] [address] Care Team Providers Care Rig Builder Helper Name Role Phone Unavailable Primary Care Provider Unavailabl e Encounter Details Date Type Department Care Team (Latest Contact Info) Description 09/20/1999 Outpatient Historical [address] [phone] Sylvie Ash MD [address] [place] [address] Supervision of other normal (Primary Dx) Social History Tobacco Use Types Packs/Day Years Used Date Smoking Tobacco: Never Assessed Comments Unknown Sex and Gender Information Value Date Recorded Sex Assigned at Not on file Legal Sex Female 4:53 AM DIRECTOR 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
--- OUTSIDE RECORDS SUMMARY | 2025-04-13 14:28 | XMS_ITS | Encounter Summary ---
Author Organization [facility] Address [address] [place] [address] Care Team Providers Care Cnc Machine Operator Name Role Phone Unavailable Primary Care Provider Unavailabl e Encounter Details Date Type Department Care Team (Latest Contact Info) Description 11/08/1999 Outpatient Historical [facility] Medicine [address] [phone] Marlene Capellan MD [address] [place] [phone] Supervision of other normal (Primary Dx); Antepartum diabetes mellitus; Urinary tract infection, site not specified Social History Tobacco Use Types Packs/Day Years Used Date Smoking Tobacco: Never Assessed Comments Unknown Sex and Gender Information Value Date Recorded Sex Assigned at Not on file 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
--- OUTSIDE RECORDS SUMMARY | 2025-04-13 14:28 | XMS_ITS | Clinical Summary ---
Author Organization [facility] Address [address] [facility] [place] [address] Care Team Providers Care Handling Tech Name Role Phone Unavailable Primary Care Provider Unavailabl e Allergies Active Allergy Reactions Criticality Noted Date Comments Morphine Itching Low 12/19/2009 Penicillins Anaphylaxis High 12/19/2009 Medications escitalopram (LEXAPRO) 20 mg Oral tablet Take 20 mg by mouth 2 times daily. Active OTHER Active rosuvastatin (CRESTOR) 20 mg Oral tablet Take 20 mg by mouth daily at bedtime. Active oxyCODONE-acetam inophen (PERCOCET) 10-325 mg Oral Tab Take 1 Tab by mouth every 4 hours as needed. Active DOCUSATE SODIUM (COLACE ORAL) Take by mouth. Active Active Problems Problem Noted Date Diagnosed Date Open wound of abdominal wall, anterior, complica stuart 12/19/2009 Immunizations Immunization Administration Dates Next Due HIB, Unspecified Formulation 05/29/2003 Family History Medical History Relation Name Comments Diabetes Father Other Father Respiratory Disease Father Heart Disease Mother Relation Name Status Comments Father Mother Alive Social History Tobacco Use Types Packs/Day Years Used Date Smoking Tobacco: Every Day Cigarettes 1 23 Alcohol Use Standard Drinks/Week Comments No 0 (1 standard drink = 0.6 oz pur e alcohol) Comments Unknown Sex and Gender Information Value Date Recorded Sex Assigned at Not on file Legal 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 Female 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 Gender Identity Not on file Sexual Orientation Not on file Last Filed Vital Signs Vital Sign Reading Time Taken Comments Blood Pressure 122/68 06/12/2010 11:42 AM CDT Pulse 76 06/12/2010 11:42 AM CDT Temperature 36.9 C (98.4 F) 12/19/2009 10:11 AM CDT Respiratory Rate 16 06/12/2010 11:42 AM CDT Oxygen Saturation - - Inhaled Oxygen Concentration - - Weight 82.1 kg (181 lb) 12/19/2009 10:11 AM CDT Height - - Body Mass Index - - Plan of Treatment Health Maintenance Due Date Last Done Comments DTAP/TDAP/TD VACCINES (1 - Tdap) 1991 HEPATITIS B VACCINES (1 of 3 - 19+ 3-dose series) 11/1990 HPV/Cotest (21-29) 1993 CERVICAL CANCER SCREENING 2002 HPV/Cotest (30-65) 2002 PAP SMEAR 2002 BREAST CANCER SCREENING 2012 COLORECTAL SCREENING 2017 Colorectal Cancer Screening 2017 FIT-DNA Q 3 years 2017 FIT/FOBT Q 1 year 2017 Flex Sig/CT Colonography Q 5 years 2017 ZOSTER VACCINE (1 of 2) 2022 INFLUENZA VACCINE (#1) 2025 Insurance [place]ICAID [place]
--- OUTSIDE RECORDS SUMMARY | 2025-04-13 14:28 | XMS_ITS | Encounter Summary ---
Author Organization [facility] Address [address] [place] [address] Care Team Providers Care Program Management Manager Name Role Phone Unavailable Primary Care Provider Unavailabl e Encounter Details Date Type Department Care Team (Latest Contact Info) Description 10/18/1999 Outpatient Historical [facility] Medicine [address] [phone] Marlene Capellan MD [address] [place] [phone] Supervision of other normal (Primary Dx); Abnormal maternal glucose tolerance, antepartum Social History Tobacco Use Types Packs/Day Years Used Date Smoking Tobacco: Never Assessed Comments Unknown Sex and Gender Information Value Date Recorded Sex Assigned at Not on file Legal Sex Female 4:53 AM MATERIAL MOVERS Gender Identity Not on file Sexual Orientation Not on file documented as of this encounter Plan of Treatment Not on file documented as of this encounter Visit Diagnoses Diagnosis Supervision of other normal - Primary Abnormal maternal glucose tolerance, antepartum documented in this encounter
--- OUTSIDE RECORDS SUMMARY | 2025-04-13 14:28 | XMS_ITS | Patient Health Record ---
Author Organization [facility] Address [address] [place] [address] Care Team Providers Care Delineator Name Role Phone Aleksandr Sonali Primary Care Provider Allergies Allergen (clinical drug ingredient) Drug/Non Drug Allergy documented on EMR Reaction Allergy Type Onset Date Status penicillamine Penicillamine Unknown Drug Allergy Active glipizide GlipiZIDE ER anxiety Drug Allergy Acti ve Reason For Referral No Information Medications Medication SIG (Take, Route, Frequency, Duration) Notes Start Date End Date Status Ondansetron HCl 4 MG Tablet 1 tablet as needed Orally three times daily; Duration: 14 days 09/25/2021 Active Gabapentin 300 MG Capsule 2 capsule Orally at bedtime; Duration: 30 day(s) Dr. Goldberg Active CeleBREX 100 MG Capsule 1 capsule with food Orally Twice a day ER Active Atorvastatin Calcium 40 mg Tablet TAKE ONE TABLET BY MOUTH EVERY DAY; Duration: 30 Active OxyCONTIN 30 MG Tablet ER 12 Hour Abuse-Deterrent 1 tablet Orally at bedtime Dr. Goldberg Active oxyCODONE HCl 7.5 MG Tablet 1 tablet Orally [address] Goldberg Active Sertraline HCl 100 mg Tablet TAKE TWO TABLETS BY MOUTH EVERY DAY; Duration: 30 Active Glucose Meter Test - Strip as directed In Vitro daily; Duration: 90 days Ultra Touch 2 meter 05/23/2020 Active CoQ-10 100 MG Capsule as directed Orally Active Lisinopril 5 mg Tablet TAKE ONE TABLET BY MOUTH TWICE DAILY; Duration: 30 Active busPIRone HCl 5 mg Tablet TAKE ONE TABLET BY MOUTH THREE TIMES DAILY; Duration: 30 Active ProAir HFA 108 (90 Base) MCG/ACT Aerosol Solution 2 puffs as needed Inhalation every 4 hrs; Duration: 30 days 10/31/2019 Active glipiZIDE 10 MG Tablet 1 tablet 30 minutes before meals Orally twice a day; Duration: 30 days Increased dose. Active Immunizations Vaccine Route Administration Date Status Comme tiff Yates Quadrivalent Influenza Vaccine 3 years+ IM Intramuscular 06/22/2020 Administered Social History Tobacco Use: Social History Observation Description Date Details (start date - stop date) Current Smoker NA - NA Social History Drugs/Alcohol: Social Info Question Answer Notes Alcohol Screen (Audit-C) Did you have a drink containing alcohol in the past year? No Points 0 Interpretation Negative Drugs Have you used drugs other than those for medical reasons in the past 12 months? No Tobacco Use: Social Info Question Answer Notes xTobacco Use/Smoking Are you a current smoker How often do you smoke cigarettes? every day How many cigarettes a day do you smoke? 11-20 How soon after you wake up do you smoke your first cigarette? 6-30 minutes Are you interested in quitting? Not ready to quit Additional Details Category Social Info Options Details Drugs/Alcohol: Do you smoke marijuana? De nies Do you drink alcohol? No Problems Problem Type SNOMED Code ICD Code Onset Dates Problem Status W/U Status Risk Notes Problem Essential hypertension (88263048) Essential hypertension (I10) Active confirmed Problem Anxiety (55958871) Anxiety (F41.9) Active confi rmed Problem Type II diabetes mellitus without complication (653956869) Type 2 diabetes mellitus without complication, without long-term current use of insulin (E11.9) Active confirmed Problem COPD - Chronic obstructive pulmonary disease (68548083) Chronic obstructive pulmonary disease, unspecified COPD type (J44.9) Active confirmed Problem Moderate recurrent major depression (08054629) Moderate episode of recurrent major depressive disorder (F33.1) Active confirmed Problem Hypercholesterolemia (07448515) Hypercholesterolemia (E78.00) Active confirmed Problem Chiari malformation type I (305834502) Chiari malformation type I (G93.5) Active confirmed Problem Enlargement of thyroid (9650713) Enlarged thyroid gland (E04.9) Active confirmed Problem Non-toxic single thyroid nodule (803846794) Cystic thyroid nodule (E04.1) Active confirmed Problem Tonsillar aspergillosis (311675379) 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) Active confirmed Plan Of Treatment No Information Insurance Providers Payer Name Payer Address Payer Phone Subscriber Number Group Number Insured Name Patient Relationship to Insured Coverage Start Date Coverage End Date [place] [address] [place] [address] [id number] Karen Ferris Self - patient is the insured Medical (General) History Medical History History ICD Code Type 2 diabetes Chronic pain from abdominal surgical mes h Diverticulitis Carpal Tunnel right wrist Arrhythmia Surgical History Surgery Date(Month/Year) C-sections x 5 Hystrectomy, complete Diverticulitis Carpal Tunnel, right Eye surgery, left Had a tendon released on right wrist 2019 Hospitalization History Reason Date(Month/Year) Pneumonia 2020
[2025-04-13 14:44] VITALS: BP 155/79; PULSE 107; RESP 16; TEMP 37.1; O2SAT 98; BMI 21.6
--- NOTE | 2025-04-13 15:09 | W.ED.GENADLT ---
HPI - General Adult General: Chief complaint: General Medical Stated complaint: needs med refill Time Seen by Provider: 04/13/25 14:45 Source: patient Mode of arrival: ambulatory Limitations: no limitations History of Present Illness: Patient is a 54-year-old female who presents emergency department stating she needs medication refills. States that she is in between primary care providers as her last one left, and she is not set to see her provider until 04/25. States that she normally takes Zoloft but has ran out of this, and has started to have some withdrawal symptoms. She also takes oxycodone but states that she has been able to space these out. No other symptoms reported at this time. MD complaint: Medication refill Associated symptoms: Deny chest pain, dyspnea, headache(s), nausea, rash, palpitations or vomiting Related Data Home Medications ?Medication ?Instructions ?Recorded ?Confirmed ibuprofen 400 mg tablet 400 mg PO DAILY PRN Pain 04/04/20 02/08/24 oxycodone 30 mg tablet,crush 30 mg PO BEDTIME 04/25/22 02/08/24 resistant,extended release 12 hr (OxyContin) gabapentin 400 mg capsule 400 mg PO Q6H 08/04/23 02/08/24 lisinopril 5 mg tablet 5 mg PO BID 08/04/23 02/08/24 oxycodone 10 mg tablet 5 - 10 mg PO Q46H 08/04/23 02/08/24 Previous Rx's ?Medication ?Instructions ?Recorded blood-glucose meter (OneTouch #1 ea 11/11/23 Ultra2 Meter) blood sugar diagnostic (OneTouch #100 strips 02/08/24 Ultra Test strips) magnesium L-lactate 84 mg 84 mg PO BID 30 days #60 tabs 02/08/24 tablet,extended release (Magtab) atorvastatin 40 mg tablet 40 mg PO DAILY #90 tabs 04/04/24 buspirone 5 mg tablet See Rx Instructions .Route 04/04/24 .COMPLEX #90 tabs oxycodone-acetaminophen 10 mg-325 1 tab PO Q8H PRN pain #14 tabs 04/13/25 mg tablet (Percocet) sertraline 150 mg capsule 150 mg PO DAILY #20 caps 04/13/25 Allergies Allergy/AdvReac Type Severity Reaction Status Date / Time Penicillins Allergy RASH, SOB Verified 02/08/24 14:04 Review of Systems General: Reports: 10 or more systems reviewed and unremarkable except in HPI and below Const: Reports: other (Present for medication refill); Denies: fever(s), chills or fatigue Eyes: Denies: change in vision ENMT: Denies: throat pain, ear or mastoid pain or nasal discharge Card: Denies: chest pain, palpitations, swelling of feet/ankles or lightheadedness Resp: Denies: dyspnea, productive cough or wheezing GI: Denies: abdominal pain, nausea, vomiting, diarrhea or constipation Musc: Denies: neck pain, back pain or joint pain Skin/Breast: Denies: rash Neuro: Denies: headache(s), numbness in extremities or weakness in extremities PFSH ED PFSH: Medical History GERD (gastroesophageal reflux disease) Diverticulitis Hyperlipidemia Hypertension DM II (diabetes mellitus, type II), controlled Surgical History H/O esophagogastroduodenoscopy History of open sigmoidectomy History of History of hysterectomy 2004 Family History Father Diabetes Family history of premature coronary artery disease Mother Family history of premature coronary artery disease Denies family history of Anesthesia complication Bleeding disorder Social History Smoking and tobacco/nicotine status: current every day tobacco/nicotine user Alcohol intake: never Substance/Drug Use: never Female Reproductive History: Spontaneous abortions: No Physical Exam Const: COMMON NORMALS: no acute distress, patient oriented x3 and no limitations GENERAL APPEARANCE: cooperative, comfortable and well developed ORIENTATION/CONSCIOUSNESS: Yes awake, Yes oriented to person, Yes oriented to place and Yes oriented to time HENMT: COMMON NORMALS: normocephalic, atraumatic and hearing grossly normal bilaterally HEAD & SCALP: normocephalic and atraumatic Eye: COMMON NORMALS: Equal, round and reactive pupils present, EOMs intact bilaterally and conjunctivae normal CONJUNCTIVA: Yes conjunctivae normal PUPIL: Yes Equal, round and reactive pupils present Neck/C-Spine: COMMON NORMALS: full ROM, supple and no JVD Resp: COMMON NORMALS: normal respiratory effort, No retractions, No use of accessory muscles and clear to auscultation bilaterally AUSCULTATION: clear to auscultation bilaterally Cardio: COMMON NORMALS: no JVD, regular rate, regular rhythm, No clicks present (Cardio), No murmurs present (Cardio) and No rub (Cardio) RATE: regular rate RHYTHM: regular rhythm Extremity: COMMON NORMALS: normal to inspection, full ROM and capillary refill normal Neuro: COMMON NORMALS: patient oriented x3, moves all extremities, no focal motor deficits and no sensory deficits noted SENSORIUM/ORIENTATION: Yes oriented to person, Yes oriented to place and Yes oriented to time Skin: COMMON NORMALS: no rashes or lesions noted GENERAL SKIN EXAM: no rashes or lesions noted Course Vital Signs: Vital signs: Vital Signs Temperature 98.8 F 04/13/25 14:44 Pulse Rate 107 H 04/13/25 14:44 Respiratory Rate 16 04/13/25 14:44 Blood Pressure 155/79 04/13/25 14:44 Pulse Oximetry 98 04/13/25 14:44 Oxygen Delivery Me thod Room Air 04/13/25 14:44 MDM - General Adult Medical Decision Making Patient presenting for refill of her Zoloft, stating she also has ran out of her oxycodone which she takes for chronic pain. She had no symptoms to report. Her primary care appointment scheduled for 04/25. Temporary prescription for Zoloft will be sent to pharmacy, and a few oxycodone will be sent home for her chronic pain. No radiology studies performed this visit Discharge Plan Discharge Patient Disposition: Home Clinical Impression: Medication refill Condition: Stable Prescriptions: New oxycodone-acetaminophen [Percocet] 10-325 mg tablet 1 tab PO Q8H PRN (Reason: pain) Qty: 14 0RF sertraline 150 mg capsule 150 mg PO DAILY Qty: 20 0RF Discontinued sertraline [Zoloft] 100 mg tablet 100 mg PO BID Qty: 180 0RF No Action oxycodone [OxyContin] 30 mg tablet,oral only,ext.rel.12 hr 30 mg PO BEDTIME magnesium L-lactate [Magtab] 84 mg tablet extended release 84 mg PO BID 30 Days Qty: 60 5RF (DME) blood-glucose meter [The Style ClubTouch Ultra2 Meter] [facility] [place] See Rx Instructions .ROUTE .COMPLEX Qty: 1 0RF Dose Instruction: USE TO CHECK GLUCOSE TWICE DAILY Rx Instructions: USE TO CHECK GLUCOSE TWICE DAILY (DME) OneTouch Ultra Test Strip See Rx Instructions .ROUTE .COMPLEX Qty: 100 3RF Dose Instruction: test ONCE a DAY Rx Instructions: Use 1 test strip to test blood glucose daily. atorvastatin 40 mg tablet 40 mg PO DAILY Qty: 90 0RF buspirone 5 mg tablet See Rx Instructions .ROUTE .COMPLEX Qty: 90 0RF Dose Instruction: TAKE 1 TABLET BY MOUTH THREE TIMES DAILY Rx Instructions: TAKE 1 TABLET BY MOUTH THREE TIMES DAILY ibuprofen 400 mg Tablet 400 mg PO DAILY PRN (Reason: Pain) gabapentin 400 mg capsule 400 mg PO Q6H oxycodone 10 mg tablet 5 - 10 mg PO Q46H Rx Instructions: take 1/2 to 1 tablet BY MOUTH EVERY 4 TO 6 HOURS NEEDED lisinopril 5 mg tablet 5 mg PO BID Discharge Orders: Discharge ED (Routine); Ordered 04/13/25 Ordered By: Christiano Grant Referrals: Alo Solis DO [Primary Care Provider, Family Practice] Patient Instructions: Patient Portal & Elicia Instructions Activity Restrictions/Additional Instructions: Take Zoloft as previously prescribed. Take pain medication as directed. Please keep your follow-up appointment with primary care as arranged. Return with any new or worsening. Print Language: Telugu Coding Level of Care Code ED Teaching Assistant for Edwar Garcia
[2025-04-13 15:18] VITALS: BP 149/76; PULSE 99; RESP 16; O2SAT 97
== END 2025-04-13 15:18 | disposition home or self-care (01) ==
PROVIDERS: Emergency Provider Physician Assistant; PCP Family Medicine
DX: Z76.0 Encounter for issue of repeat prescription (principal); Z72.0 Tobacco use; E78.5 Hyperlipidemia, unspecified; E11.9 Type 2 diabetes mellitus without complications; I10 Essential (primary) hypertension
CPT/HCPCS: 99283

== ENCOUNTER → 2025-04-25 15:09 | Outpatient (BNVA) | payer MEDICARE, MEDICAID, SELFPAY | PROVIDERS: PCP Family Medicine; Visit Provider Family Medicine | DX: I10 Essential (primary) hypertension (principal); E11.65 Type 2 diabetes mellitus with hyperglycemia; E55.9 Vitamin D deficiency, unspecified; E78.2 Mixed hyperlipidemia; F41.9 Anxiety disorder, unspecified; F32.A Depression, unspecified; F17.218 Nicotine dependence, cigarettes, with other nicotine-induced disorders | CPT/HCPCS: 80053; 80061; 82043; 82306; 83036; 84439; 84443; 85025 ==

== ENCOUNTER → 2025-05-02 10:51 | Outpatient (BNVA) | payer MEDICARE, MEDICAID, SELFPAY | PROVIDERS: PCP Family Medicine | DX: I10 Essential (primary) hypertension (principal); E11.65 Type 2 diabetes mellitus with hyperglycemia; E55.9 Vitamin D deficiency, unspecified; E78.2 Mixed hyperlipidemia; F41.9 Anxiety disorder, unspecified; F32.A Depression, unspecified; F17.218 Nicotine dependence, cigarettes, with other nicotine-induced disorders | CPT/HCPCS: 80053; 80061; 82306; 83540; 84439; 84443 ==

== ENCOUNTER 2025-05-17 10:05 | Outpatient (CLI) | payer MEDICARE, MEDICAID, SELFPAY ==
--- NOTE | 2025-05-17 10:30 | CT_ITS ---
WS: [id number] LDCT LUNG CANCER SCREENING HISTORY: screening; smoker; 54pk yr hx TECHNIQUE: Axial imaging performed from the apices to 1 cm below the costophrenic angles. Coronal and sagittal reformats are submitted with axial MIP series. All CT scans at [facility] use at least one of these dose optimization techniques: automated exposure control; mA and/or kV adjustment per patient size (includes targeted exams where dose is matched to clinical indication); or iterative reconstruction. DLP: 65.79 mGy.cm DIvol: Mean CTDIvol: 1.30 (mGy) COMPARISON: 10/29/2021 Diagnostic quality: Satisfactory Lungs: Mild pulmonary hyperinflation and centrilobular emphysema. Scattered calcified pulmonary nodules. Micronodules LEFT lung apex. These are less than 3 mm in diameter. No pulmonary mass. No pneumonia or nodule. Heart: Normal size heart with no pericardial effusion.. Other findings: Very mild atherosclerosis aorta. Calcified hilar lymph nodes. Normal size aorta and pulmonary artery. Prior RIGHT thyroidectomy. Small hiatal hernia. Low-attenuation LEFT adrenal mass 2.9 x 2.9 cm with negative Hounsfield units consistent with an adenoma. Normal RIGHT adrenal gland. Ventral abdominal wall hernia repair. CT/CT lung screening 13029 IMPRESSION: LUNG-RADS: 2-Benign Appearance or Behavior FOLLOW UP: 12 Month: Continue annual screening with LDCT OTHER FINDINGS (S MODIFIER): None.
== END 2025-05-17 10:06 | disposition home or self-care (01) ==
LOC: RAD 10:06
PROVIDERS: PCP Family Medicine; Visit Provider Family Medicine
DX: Z12.2 Encounter for screening for malignant neoplasm of respiratory organs (principal); F17.218 Nicotine dependence, cigarettes, with other nicotine-induced disorders; I70.0 Atherosclerosis of aorta; I89.9 Noninfective disorder of lymphatic vessels and lymph nodes, unspecified; Z90.89 Acquired absence of other organs; K44.9 Diaphragmatic hernia without obstruction or gangrene; Z98.890 Other specified postprocedural states; D35.02 Benign neoplasm of left adrenal gland
CPT/HCPCS: 71271

== ENCOUNTER 2025-05-30 22:13 | Emergency (ER) | payer MEDICARE, MEDICAID, SELFPAY ==
[2025-05-30 22:18] VITALS: BP 154/79; PULSE 112; RESP 16; TEMP 36.8; O2SAT 100; BMI 25.7
--- NOTE | 2025-05-30 22:35 | W.ED.ABDPA2 ---
HPI - Abdominal Pain General: Chief Complaint: Abdominal Pain Stated Complaint: Fells unwell, Ketones are max out Time Seen by Provider: 05/30/25 22:25 History of Present Illness: Patient is a pleasant 54-year-old female with DM, on Jardiance, peripheral neuropathy, HTN on lisinopril presents to the emergency room due to hyperglycemia. Patient states she just does not feel well. She went to her primary care physician last [place], 5 days ago, due to hyperglycemia. Her primary care physician wondered be placed on insulin, however patient wanted to try doing her own. She stated that last night she had a piece of seasoned chicken, mix stirfry vegetables, and blood sugar was 464. Tonight, she had ketones in her urine, and a high blood glucose of 362. She came to the emergency room with not feeling well, and hypoglycemia. Denies any shortness of breath, chest pain. No sores. She has a stage II on her right ankle due to rubbing the console in the car that she had realize she was doing. There is no redness around this. She is not had a fever Associated Symptoms: Denies chills, fever(s), nausea and vomiting Related Data Home Medications ?Medication ?Instructions ?Recorded ?Confirmed ibuprofen 400 mg tablet 400 mg PO DAILY PRN Pain 04/04/20 05/26/25 oxycodone 10 mg tablet 5 - 10 mg PO Q46H 08/04/23 05/26/25 Previous Rx's ?Medication ?Instructions ?Recorded blood-glucose meter (OneTouch #1 ea 11/11/23 Ultra2 Meter) blood sugar diagnostic (OneTouch #100 strips 02/08/24 Ultra Test strips) atorvastatin 40 mg tablet 40 mg PO DAILY #90 tabs 04/25/25 gabapentin 400 mg capsule 400 mg PO TID #90 caps 04/25/25 lisinopril 10 mg tablet 10 mg PO DAILY #30 tabs 04/25/25 sertraline 100 mg tablet 150 mg (1.5 x 100 mg) PO DAILY #45 04/25/25 tabs empagliflozin 10 mg tablet 10 mg PO DAILY #30 tabs 04/26/25 (Jardiance) cholecalciferol (vitamin D3) 125 125 mcg PO DAILY #90 caps 05/03/25 mcg (5,000 unit) capsule ropinirole 2 mg tablet 2 mg PO .qpm #90 tabs 05/04/25 insulin lispro 100 unit/mL 10 unit (0.1 mL) SUBCUT TID #10 mL 05/31/25 subcutaneous solution (Humalog U-100 Insulin) insulin syringe,safety needle 0.5 #100 ea 05/31/25 mL 29 gauge x 1/2 (BD SafetyGlide Insulin Syringe) Allergies Allergy/AdvReac Type Severity Reaction Status Date / Time Penicillins Allergy RASH, SOB Verified 05/26/25 14:12 metformin AdvReac Intermediate ADR-Nausea Verified 05/26/25 14:12 Review of Systems General: Reports: 10 or more systems reviewed and unremarkable except in HPI and below Const: Denies: fever(s) or chills Eyes: Denies: change in vision or blurry vision ENMT: Denies: nasal congestion or sinus pain Card: Denies: chest pain or palpitations Resp: Denies: dyspnea or non-productive cough GI: Denies: abdominal pain, nausea or vomiting : Denies: flank pain or difficulty voiding Musc: Denies: neck pain, back pain or extremity pain Skin/Breast: Denies: rash or pruritus Neuro: Reports: numbness in extremities (Chronic); Denies: headache(s), sensory changes, lack of coordination, dizziness or vertigo Endo: Reports: polydipsia and tired all the time [facility] ED PFSH: Medical History (Updated 05/31/25 @ 00:34 by ASHLEIGH Billings) Goiter Anxiety and depression Hypovitaminosis D Screening for lung cancer Chronic pain syndrome back/neck; pain from bad hernia repair; chronic low back pain; was seeing Dr. Goldberg Restless leg syndrome Nicotine dependence, cigarettes, with other nicotine-induced disorders LDCT 05.17.25--repeat one year Chiari malformation type I had surgery 2024 GERD (gastroesophageal reflux disease) Diverticulitis Hyperlipidemia Hypertension DM II (diabetes mellitus, type II), controlled Surgical History History of surgery on right wrist for Dequervains Hx of laparoscopy had at least 2 for endometriosis Hx of appendectomy Hx of craniotomy done for Arnold Chiari surgery 2022 at [facility] H/O esophagogastroduodenoscopy History of open sigmoidectomy done for diverticulitis History of X 5 History of hysterectomy 2003; hyst with BSO done for endometriosis Family History Father Diabetes Family history of premature coronary artery disease Mother Family history of premature coronary artery disease Denies family history of Anesthesia complication Bleeding disorder Social History Smoking and tobacco/nicotine status: current every day tobacco/nicotine user cigarettes [ Other cigarette details: age 16 to 54 1.5ppd avg; ] and e-cigarettes Alcohol intake: never Substance/Drug Use: never Household members: none Marital status: / Number of children: 5 Highest education level completed: Some College, No Degree Current 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 status: disabled Previous 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 history: 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; 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 Female Reproductive History: Spontaneous abortions: No Physical Exam Const: COMMON NORMALS: no acute distress, average body habitus, patient oriented x3, no limitations, healthy appearing, alert and well nourished GENERAL APPEARANCE: cooperative HENMT: COMMON NORMALS: normocephalic and atraumatic HEAD & SCALP: normocephalic and atraumatic Neck/C-Spine: COMMON NORMALS: full ROM and no lymphadenopathy Lymph: LYMPHATIC: no lymphadenopathy noted Chest: COMMONS NORMALS: normal inspection of the chest Resp: COMMON NORMALS: normal respiratory effort, No retractions, No use of accessory muscles and clear to auscultation bilaterally AUSCULTATION: clear to auscultation bilaterally Cardio: COMMON NORMALS: regular rate and regular rhythm RATE: regular rate RHYTHM: regular rhythm GI: COMMON NORMALS: Normal to inspection, nondistended, normoactive bowel sounds present, Soft to palpation, non-tender and No hepatosplenomegaly present PALPATION: Yes Soft to palpation and Yes No hepatosplenomegaly present : COMMON NORMALS: Yes no CVA tenderness BLADDER/KIDNEY EXAM: Yes no CVA tenderness Back/Pelvis: COMMON NORMALS: no CVA tenderness Extremity: NARRATIVE EXTREMITY EXAM: Stage II 1 cm right lateral malleolus without surrounding redness or drainage. Neuro: COMMON NORMALS: patient oriented x3 SENSORIUM/ORIENTATION: Yes alert Psych: COMMON NORMALS: mental status grossly normal, Normal thought process present, cooperative, normal affect and speech normal SPEECH: Yes normal speech THOUGHT PROCESS: Normal thought process present Skin: NARRATIVE SKIN EXAM: Wound on right lateral malleolus. See above Course Vital Signs: Vital signs: Vital Signs Temperature 98.2 F 05/30/25 22:18 Pulse Rate 92 05/31/25 01:09 Respiratory Rate 14 05/31/25 01:09 Blood Pressure 124/77 05/31/25 01:09 Pulse Oximetry 97 05/31/25 01:09 Oxygen Delivery Me thod Room Air 05/31/25 00:14 MDM - Abdominal Pain Medical Decision Making Patient is a 54-year-old female that comes to the ED with worsening diabetes. She saw her primary care physician on Thursday, 5 days ago with these concerns above. She was told she was to go on insulin, however she did not want to at this time. In the ED, she does have some slight pseudohyponatremia, however secondary polycythemia vera is present, as well as metabolic acidosis with a CO2 of 14, blood glucose of 427. I placed her on insulin, and given her 15 units IV in the ED of regular insulin. Repeat Accu-Chek will take place in 20 more minutes. Patient has a sliding scale. I have also given her information on reduced cost of insulin if this is an issue with her insurance. She is to continue her Jardiance. She is to call her doctor in the morning for close follow-up. Medical Records I reviewed the patient's medical records. Lab Data I reviewed the patient's lab results. 05/30/25 22:45 05/30/25 22:45 Labs/Radiology: Laboratory Results WBC 8.12 10^3/uL (3.29-11.43) 05/30/25 22:45 RBC 5.17 10^6/uL (3.85-5.65) 05/30/25 22:45 Hgb 16.10 g/dL (11.27-16.99) 05/30/25 22:45 Hct 47.2 % (36-47) H 05/30/25 22:45 MCV 91.3 fl (85-98) 05/30/25 22:45 MCH 31.1 pg (27-33) 05/30/25 22:45 MCHC 34.1 g/dL (30-55) 05/30/25 22:45 RDW 12.2 % (12.1-15.1) 05/30/25 22:45 Plt Count 268 10^3/cmm (157-399) 05/30/25 22:45 MPV 9.6 fL (7.4-10.4) 05/30/25 22:45 Neut % (Auto) 66.7 % 05/30/25 22:45 Lymph % (Auto) 28.2 % 05/30/25 22:45 Hartley % (Auto) 3.7 % 05/30/25 22:45 Eos % (Auto) 0.4 % 05/30/25 22:45 Baso % (Auto) 0.6 % 05/30/25 22:45 Neut # (Auto) 5.42 10^3/uL (1.8-7.7) 05/30/25 22:45 Lymph # (Auto) 2.3 10^3/uL (0.8-4.8) 05/30/25 22:45 Hartley # (Auto) 0.3 10^3/uL (0.2-0.9) 05/30/25 22:45 Eos # (Auto) 0.0 10^3/uL (0.0-0.8) 05/30/25 22:45 Baso # (Auto) 0.1 10^3/uL (0.0-0.1) 05/30/25 22:45 Nucleated RBC % (auto) 0 % 05/30/25 22:45 Nucleated RBCs # 0.0 /100WBC 05/30/25 22:45 Sodium 131 mmol/L (136-145) L 05/30/25 22:45 Potassium 4.6 mmol/L (3.5-5.1) 05/30/25 22:45 Chloride 93 mmol/L (98-107) L 05/30/25 22:45 Carbon Dioxide 14 mmol/L (22-29) L 05/30/25 22:45 Anion Gap 28.6 (5-19) H 05/30/25 22:45 BUN 18 mg/dL (6-20) 05/30/25 22:45 Creatinine 0.8 mg/dL (0.5-0.9) 05/30/25 22:45 GFR Calculation 75.3 mL/min (90-130) L 05/30/25 22:45 Glucose 427 mg/dL (65-115) H 05/30/25 22:45 POC Glucose 414 mg/dL (70-110) H 05/30/25 22:23 Calculated Osmolality 292 mOsm/kg (285-295) 05/30/25 22:45 Calcium 9.6 mg/dL (8.5-10.5) 05/30/25 22:45 Phosphorus 3.8 mg/dL (2.5-4.5) 05/30/25 22:45 Magnesium 2.1 mg/dL (1.7-2.3) 05/30/25 22:45 Total Bilirubin 0.3 mg/dL (0.15-1.2) 05/30/25:45 AST 18 U/L (0-32) 05/30/25:45 ALT 17 U/L (0-33) 05/30/25 22: Alkaline Phosphatase 109 U/L (35-105) H 05/30/25 22:45 Total Protein 7.3 g/dL (6.6-8.7) 05/30/25:45 Albumin 4.5 g/dL (3.5-5.2) 05/30/25:45 Globulin 2.8 g/dL (1.3-4.6) 05/30/25 22:45 Urine Color Yellow (Yellow) 05/30/25: Urine Appearance Clear (CLEAR) 05/30/25:45 Urine pH 5.0 (5-7) 05/30/25:45 Ur Specific [place] 1.038 (1.005-1.030) H 05/30/25:45 Urine Protein Negative (Negative) 05/30/25:45 Urine Glucose (UA) 3+ (Normal) H 05/30/25:45 Urine Ketones 4+ (Negative) 05/30/25:45 Urine Blood Negative (Negative) 05/30/25: Urine Nitrate Negative (Negative) 05/30/25: Urine Bilirubin Negative (Negative) 05/30/25 22:45 Urine Urobilinogen 0.2 mg/dL (Negative) 05/30/25 22:45 Ur Leukocyte Esterase Negative (Negative) 05/30/25:45 Urine RBC 0-2 /hpf (0-2) 05/30/25 22:45 Urine WBC 0-5 /hpf (0-5) 05/30/25 22:45 Ur Squamous Epith Cells 0-5 /hpf (0-5) 05/30/25 22:45 Amorphous Sediment Not Reportable 05/30/25 22:45 Urine Bacteria None seen /hpf (NONE) 05/30/25 22:45 Hyaline Casts 0-4 /lpf H 05/30/25 22:45 Serum Ketones Positive (Negative) H 05/30/25 22:45 No radiology studies performed this visit Discharge Plan Discharge Patient Disposition: Home Clinical Impression: Stage II pressure ulcer of right ankle Diabetes mellitus type 2, uncontrolled Qualifiers: Glycemic state: with hyperglycemia Qualified Code(s): E11.65 - Type 2 diabetes mellitus with hyperglycemia Condition: Stable Prescriptions: New insulin lispro [Humalog U-100 Insulin] 100 unit/mL solution 10 unit SUBCUT TID Qty: 10 0RF Rx Instructions: Take 5 units with meals sq for blood glucose 151-200 Take 8 units with meals sq for blood glucose 201-250 Take 12 units with meals sq for blood glucose 251-300 Take 15 units with meals sq for blood glucose 301-350 Take 18 units with meals sq for blood glucose 351-400 Take 20 units with meals sq for blood glucose 401 or above and discuss with your doctor (DME) BD SafetyGlide Insulin Syringe 0.5 mL 29 gauge x 1/2 syringe See Rx Instructions .Route Qty: 100 0RF Rx Instructions: As directed No Action atorvastatin 40 mg tablet 40 mg PO DAILY Qty: 90 0RF gabapentin 400 mg capsule 400 mg PO TID Qty: 90 2RF sertraline 100 mg tablet 150 mg PO DAILY Qty: 45 3RF lisinopril 10 mg tablet 10 mg PO DAILY Qty: 30 2RF (DME) blood-glucose meter [OneTouch Ultra2 Meter] [facility] See Rx Instructions .ROUTE .COMPLEX Qty: 1 0RF Dose Instruction: USE TO CHECK GLUCOSE TWICE DAILY Rx Instructions: USE TO CHECK GLUCOSE TWICE DAILY (DME) OneTouch Ultra Test Strip See Rx Instructions .ROUTE .COMPLEX Qty: 100 3RF Dose Instruction: test ONCE a DAY Rx Instructions: Use 1 test strip to test blood glucose daily. Jardiance 10 mg tablet 10 mg PO DAILY Qty: 30 5RF cholecalciferol (vitamin D3) 125 mcg (5,000 unit) capsule 125 mcg PO DAILY Qty: 90 0RF ropinirole 2 mg tablet 2 mg PO .qpm Qty: 90 1RF ibuprofen 400 mg Tablet 400 mg PO DAILY PRN (Reason: Pain) oxycodone 10 mg tablet 5 - 10 mg PO Q46H Rx Instructions: take 1/2 to 1 tablet BY MOUTH EVERY 4 TO 6 HOURS NEEDED Discharge Orders: Discharge ED (Routine); Ordered 05/31/25 Ordered By: Leticia Perkins Referrals: Migdalia Reich MD [Primary Care Provider, Family Practice] Discharge Diet: Diabetic Discharge Activity: Resume usual activity Patient Instructions: Clear Liquid Diet (ED), What is Insulin (ED), Diabetic Hyperglycemia (ED), Patient Portal & Elicia Instructions Activity Restrictions/Additional Instructions: - Call your doctor in the morning, set an alarm to follow-up tomorrow - Humalog insulin was sent to your pharmacy with insulin syringes. As noted, if this is a cost issue, obtain regular insulin [id number], and follow the sliding scale on your prescription. The pharmacy will give you a copy. -Place a pad on your right ankle on your sore. This needs to be checked every day. If there is increasing redness, go to your doctor for antibiotics immediately. - An order for case management has been placed for you to have insulin/diabetes education and carb counting. They will call you to set up an appointment with the dietitian/classes locally -Clear liquid diet/none concentrated sweets until you follow-up. The clear liquid diet information I gave you above, does not have it without concentrated sweets. Make sure you follow the directions with no concentrated sweets however these are suggestions of things you can eat. - Good luck to you on your new ventures with insulin. Take care of yourself, and feel free to come back to the ED if you need your help Print Language: Argentine Coding Level of Care Code ED Rope Machine Setter for Edwar Garcia
[2025-05-30 22:50] VITALS: BP 142/95; PULSE 99; RESP 16; O2SAT 95
[2025-05-30 22:57] LABS: Hematocrit 47.2 % (36-47); Hemoglobin 16.10 g/dL (11.27-16.99); Mean Corpuscular HGB Conc 34.1 g/dL (30-55); Mean Corpuscular Hemoglobin 31.1 pg (27-33); Mean Corpuscular Volume 91.3 fl (85-98); Nucleated Red Blood Cells % 0 %; Platelet Count 268 10^3/cmm (157-399); Red Blood Count 5.17 10^6/uL (3.85-5.65); White Blood Count 8.12 10^3/uL (3.29-11.43)
[2025-05-30 23:00] LABS: Glucose Urine UA 3+ (Normal); Nitrate Urine Negative (Negative)
[2025-05-30 23:04] LABS: Add Urine Microscopic? YES
[2025-05-30 23:14] LABS: Specific Gravity, Urine 1.038 (1.005-1.030)
[2025-05-30 23:22] LABS: Alanine Aminotransferase 17 U/L (0-33); Albumin Level 4.5 g/dL (3.5-5.2); Alkaline Phosphatase 109 U/L (35-105); Aspartate Amino Transferase 18 U/L (0-32); Blood Urea Nitrogen 18 mg/dL (6-20); Calcium 9.6 mg/dL (8.5-10.5); Carbon Dioxide 14 mmol/L (22-29); Chloride 93 mmol/L (98-107); Creatinine Clr Calc Pharmacy 80.9331; Globulin 2.8 g/dL (1.3-4.6); Glucose 427 mg/dL (65-115); Magnesium 2.1 mg/dL (1.7-2.3); Osmolality Calculated 292 mOsm/kg (285-295); Sodium 131 mmol/L (136-145); Total Protein 7.3 g/dL (6.6-8.7)
[2025-05-30 23:23] LABS: Anion Gap 28.6 (5-19); Potassium 4.6 mmol/L (3.5-5.1)
[2025-05-30 23:26] LABS: Ketone (Acetest) Serum Positive (Negative)
[2025-05-31 00:14] VITALS: BP 134/77; PULSE 89; RESP 16; O2SAT 97
[2025-05-31] MEDS: insulin regular-human 100 units/1 mL 15 UNIT IVP (00:14)
[2025-05-31 01:09] VITALS: BP 124/77; PULSE 92; RESP 14; O2SAT 97
--- NOTE | 2025-06-01 07:54 | DCPLANNER ---
messaged pcp for er f/u
== END 2025-05-31 01:11 | disposition home or self-care (01) ==
PROVIDERS: Emergency Provider Physician Assistant; PCP Family Medicine
DX: L89.512 Pressure ulcer of right ankle, stage 2 (principal); E11.65 Type 2 diabetes mellitus with hyperglycemia; Z79.4 Long term (current) use of insulin; F17.210 Nicotine dependence, cigarettes, uncomplicated; E78.5 Hyperlipidemia, unspecified; I10 Essential (primary) hypertension
CPT/HCPCS: 36415; 36416; 80053; 81001; 82009; 82010; 82962; 83735; 84100; 85025; 96361; 96374; 99284; J1815; J7030

== ENCOUNTER 2025-06-09 09:19 | Outpatient (CLI) | payer MEDICARE, MEDICAID, SELFPAY ==
--- NOTE | 2025-06-09 09:40 | MM_ITS ---
WS: [id number] SCREENING DIGITAL BREAST TOMOSYNTHESIS MAMMOGRAM WITH CAD HISTORY: screening COMPARISON: None available. Bilateral CC and MLO with tomosynthesis and synthetic mammography submitted. Computer aided detection analyzed. Breast composition: There are scattered areas of fibroglandular density. Slightly lobulated mass in the central LEFT breast near 12:00, middle depth. Mass is of slight increased density. Mass measures 6 x 6 x 5 mm. There are additional benign calcifications in each breast. MM/MM scr tomosynthesis [id number] IMPRESSION: BI-RADS: 0 - Incomplete: Need additional imaging evaluation. FOLLOW UP: Need Additional Imaging LEFT breast: Spot compression views (CC and MLO). True ML. Ultrasound to follow if abnormality persists.
--- NOTE | 2025-06-09 10:00 | USR_ITS ---
PROCEDURE INFORMATION: Exam: US Soft Tissue Head and Neck, TI-RADS Exam date and time: 06/09/2025 9:38 AM Age: 54 years old Clinical indication: Condition or disease; Thyroid disorder; Goiter, non-toxic; Type not specified; Additional info: Goiter, palpable thyroid TECHNIQUE: Imaging protocol: Real-time ultrasound scan of the neck with image documentation. Exam focused on the thyroid. COMPARISON: US thyroid [id number] 12/18/2021 9:59 AM FINDINGS: Right thyroid lobe: Right thyroid lobe measures 2.4 x 2.7 x 5.5 cm (17.5 mL). Left thyroid lobe: Left thyroid lobe measures 2.7 x 2.9 x 5.9 cm (22.2 mL). Isthmus: Not thickened. Thyroid nodule 1 Size: 2.2 x 2.1 x 3.3 cm, previously 2.4 x 2.5 x 2.5 cm Thyroid nodule 1 Location: Right thyroid lobe Thyroid nodule 1 Composition: Predominantly cystic with solid components Thyroid nodule 1 Echogenicity: Isoechoic Thyroid nodule 1 Shape: Wider than tall Thyroid nodule 1 Margins: Smooth Thyroid nodule 1 Echogenic foci: None Thyroid nodule 1 Points: 2 Thyroid nodule 2 Size: 3.1 x 2.2 x 3.3 cm, previously 2.4 x 2.5 x 3.2 cm Thyroid nodule 2 Location: Left thyroid lobe Thyroid nodule 2 Composition: Predominantly solid with cystic components Thyroid nodule 2 Echogenicity: Isoechoic Thyroid nodule 2 Shape: Wider than tall Thyroid nodule 2 Margins: Smooth Thyroid nodule 2 Echogenic foci: None Thyroid nodule 2 Points: 2 Lymph nodes: No enlarged nodes. US/US thyroid [id number] IMPRESSION: No significant interval change in bilateral thyroid nodules as detailed above. TI-RADS category TR2, Not Suspicious. No fine needle aspiration or follow-up ultrasound is recommended. (Reference: Javier) REFERENCES: Javier FN, Viv WD, Papa BARCENAS et al. ACR Thyroid Imaging, Reporting and Data System (TI-RADS): White Paper of the ACR TI-RADS Committee. J Am Fidencio Radiol. 2017; 14: 587-595.
== END 2025-06-09 09:20 | disposition home or self-care (01) ==
LOC: RAD 09:20
PROVIDERS: PCP Family Medicine; Visit Provider Family Medicine
DX: Z12.31 Encounter for screening mammogram for malignant neoplasm of breast (principal); E04.9 Nontoxic goiter, unspecified; R92.323 Mammographic fibroglandular density, bilateral breasts; R92.1 Mammographic calcification found on diagnostic imaging of breast; N63.22 Unspecified lump in the left breast, upper inner quadrant; E07.9 Disorder of thyroid, unspecified
CPT/HCPCS: 76536; 77063; 77067

== ENCOUNTER 2025-06-20 10:53 | Outpatient (CLI) | payer MEDICARE, MEDICAID, SELFPAY ==
--- NOTE | 2025-06-20 11:15 | MM_ITS ---
WS: [id number] ADDITIONAL VIEWS LEFT MAMMOGRAM WITH DIGITAL BREAST TOMOSYNTHESIS. LEFT BREAST ULTRASOUND, LIMITED HISTORY: abnormal L breast mass on screening mammogram COMPARISON: 06/09/2025 Spot compression views LEFT breast in CC, MLO projections and true ML submitted with digital breast tomosynthesis and . Breast composition: There are scattered areas of fibroglandular density. The vague asymmetry persist in the LEFT breast, retroareolar at a mid depth. Asymmetry measures 5 x 4 x 5 mm. This may be a lymph node. There is no distortion. No associated calcifications. LEFT breast ultrasound, limited. LEFT breast at 12:00 middle depth there is a benign-appearing lymph node measuring 0.5 x 0.3 x 0.6 cm. This does correspond in location and size to the mammographic abnormality. No additional abnormality is identified. MM/MM diag LT tomosynthesis [id number] IMPRESSION: BI-RADS: 2 - Benign. FOLLOW UP: 1 Year Follow-up Abnormality in the LEFT breast corresponds to a benign-appearing lymph node.
--- NOTE | 2025-06-20 11:45 | US_ITS ---
WS: [id number] ADDITIONAL VIEWS LEFT MAMMOGRAM WITH DIGITAL BREAST TOMOSYNTHESIS. LEFT BREAST ULTRASOUND, LIMITED HISTORY: abnormal L breast mass on screening mammogram COMPARISON: 06/09/2025 Spot compression views LEFT breast in CC, MLO projections and true ML submitted with digital breast tomosynthesis and SM. Breast composition: There are scattered areas of fibroglandular density. The vague asymmetry persist in the LEFT breast, retroareolar at a mid depth. Asymmetry measures 5 x 4 x 5 mm. This may be a lymph node. There is no distortion. No associated calcifications. LEFT breast ultrasound, limited. LEFT breast at 12:00 middle depth there is a benign-appearing lymph node measuring 0.5 x 0.3 x 0.6 cm. This does correspond in location and size to the mammographic abnormality. No additional abnormality is identified. US/US breast LT limited* [id number] IMPRESSION: BI-RADS: 2 - Benign. FOLLOW UP: 1 Year Follow-up Abnormality in the LEFT breast corresponds to a benign-appearing lymph node.
== END 2025-06-20 10:54 | disposition home or self-care (01) ==
LOC: RAD 10:54
PROVIDERS: PCP Family Medicine; Visit Provider Family Medicine
DX: N63.25 Unspecified lump in the left breast, overlapping quadrants (principal); R92.322 Mammographic fibroglandular density, left breast; N64.89 Other specified disorders of breast
CPT/HCPCS: 76642; 77061; 77063

== ENCOUNTER → 2025-07-27 13:43 | Outpatient (BNVA) | payer MEDICARE, MEDICAID, SELFPAY | PROVIDERS: PCP Family Medicine; Visit Provider Family Medicine | DX: E11.65 Type 2 diabetes mellitus with hyperglycemia (principal); E55.9 Vitamin D deficiency, unspecified | CPT/HCPCS: 82306; 83036 ==